=== PATIENT | female | born 1950 | race Caucasian/White ===

== ENCOUNTER → 2023-10-23 09:18 | Outpatient (REF) | payer OTHER, SELFPAY | LOC: RAD 09:18 | PROVIDERS: ATTENDING PHYSICIAN Nurse Practitioner Family | DX: R06.02 Shortness of breath (principal); R05.1 Acute cough | CPT/HCPCS: 71046 ==

== ENCOUNTER → 2023-11-13 09:33 | Outpatient (REF) | payer OTHER, SELFPAY | LOC: RAD 09:33 | PROVIDERS: ATTENDING PHYSICIAN Nurse Practitioner Family | DX: J18.9 Pneumonia, unspecified organism (principal) | CPT/HCPCS: 71046 ==

== ENCOUNTER → 2024-01-12 06:53 | Outpatient (REF) | payer OTHER, SELFPAY ==
[2024-01-12 08:19] LABS: Erythrocyte Sed Rate 26 mm/hour (0-20)
[2024-01-12 09:34] LABS: Vitamin B12 677 pg/ml (239-931)
[2024-01-12 10:33] LABS: Microalbumin, Random Urine 2.1 mg/dl (0.6-1.7); Microalbumin/creatinine Ratio 12.3 mg/g
[2024-01-12 14:01] LABS: Syphilis/T. pallidum Ab Reflex Negative (Negative)
== END ==
LOC: REG 06:53
PROVIDERS: ATTENDING PHYSICIAN Nurse Practitioner Primary Care
DX: Z00.00 Encounter for general adult medical examination without abnormal findings (principal); D47.2 Monoclonal gammopathy; M80.00XA Age-related osteoporosis with current pathological fracture, unspecified site, initial encounter for fracture; R41.89 Other symptoms and signs involving cognitive functions and awareness
CPT/HCPCS: 36415; 82043; 82570; 82607; 82784; 83521; 84155; 84165; 85652; 86334; 86618; 86780

== ENCOUNTER 2024-01-12 08:02 | Emergency (ER) | payer OTHER, SELFPAY ==
[2024-01-12 08:04] VITALS: BP 127/77
--- NOTE | 2024-01-12 08:38 | ED.GENMED ---
History of Present Illness
General
Chief Complaint: Cough
Source: patient
Time Seen by Provider: 01/12/24 08:13
History of Present Illness
History of Present Illness:
73-year-old female presents to the emergency room complaining of a cough. Patient has had a cough for the past 2 or 3 days. She also feels generally weak. She went to her family doctor's office but they would not see her. Patient denies any
significant shortness of breath. She has a history of multiple myeloma.
Phy Exam
Physical Exam
Physical Exam:
General: Awake, Alert, Oriented X3. No acute distress.
Vitals: unremarkable
Head: Atraumatic
Eyes: Pupils equal, EOMI
Throat: Airway intact, no exudates
Neck: Trachea midline
Lungs: Few rhonchi
Heart: Regular rate, no murmurs
Abd: Soft, Nontender, No pulsatile mass
Neuro: Nonfocal
Skin: Warm, dry, no rash
Extremities: pulses equal b/l, no edema
Course
Orders/Labs/Results
Orders:
Orders
01/12/24 08:37
CR Chest - 2 Views Urgent
Comment:
Reason For Exam: cough
01/12/24 08:52
COVID-19 Antigen Urgent
Source: Nasal Swab
01/12/24 11:09
Doxycycline [Vibramycin] 100 mg PO NOW STA
Vital Signs
Initial and Last Documented VS:
Initial Vital Signs
Temp Pulse Resp BP Pulse Ox
98.6 F 82 16 127/77 97
01/12/24 08:04 01/12/24 08:04 01/12/24 08:04 01/12/24 08:04 01/12/24 08:04
Last Documented Vital Signs
Temp Pulse Resp BP Pulse Ox
98.6 F 83 18 133/73 96
01/12/24 08:04 01/12/24 11:21 01/12/24 11:21 01/12/24 11:21 01/12/24 11:21
MDM/Problems Addressed
Differential Diagnosis Includes:
Acute bronchitis, pneumonia, COVID
MDM/Problems Addressed:
COVID-negative. Chest x-ray shows no acute abnormalities. Will cover acute bronchitis with doxycycline. Patient stable for discharge home.
*Radiology
Radiology exam reviewed: preliminary read by ED provider (Personally viewed the chest x-ray see no acute disease)
*Pulse Oximetry
Patient hypoxic: no
*Critical Care Note
Total Time (30-74mins, 75-104mins- exclusive of procedures): Not Applicable
Patient Management
Social determinants of health affecting care: Strong social support
ED Attending Note
-
Portions of this chart may have been created with voice recognition software.� Occasional wrong word or��sound alike� substitutions may have occurred due to the inherent limitations of voice recognition software.
Discharge Plan
Departure
Patient Disposition: Home (Routine Discharge)
Date of Disposition: 01/12/24
Time of Disposition: 11:06
Patient with high blood pressure during this ER visit?: No
Condition: Good
Discharge Problem:
Acute bronchitis
Instructions: Acute Bronchitis, Adult (DC)
Prescriptions:
New
doxycycline monohydrate 100 mg capsule
100 mg PO BID Qty: 14 0RF
albuterol sulfate 90 mcg/actuation HFA aerosol inhaler
2 puff inhalation Q4H PRN (Reason: shortness of breath or wheezing) Qty: 8.5 0RF
No Action
Prolia 60 mg/mL Syringe
60 mg SC [id number]
acetaminophen [Tylenol] 325 mg Tablet
650 mg PO HSPRN PRN (Reason: MILD PAIN)
Referrals:
NONE,* [Family Provider] -
Interventions
Interventions:
*Risk Screen - Suicide Last Done: 01/12/24 08:04
*General Assessment Last Done: 01/12/24 08:04
*Neglect/Abuse Screening Last Done: 01/12/24 08:04
*ED COVID-19 Vaccine History Last Done: 01/12/24 08:04
*Nursing Disposition Last Done: 01/12/24 11:21
ED- Pulmonary Assessment Last Done: 01/12/24 09:00
Discharge Date and Time
Discharge Date/Time: 01/12/24 11:25
Print Language: [place] CITIZ[place]
[2024-01-12 09:00] VITALS: BP 124/62
[2024-01-12 09:48] LABS: COVID-19 Antigen Negative (Negative)
[2024-01-12] MEDS: VIBRAMYCIN 100 MG PO (11:18)
[2024-01-12 11:21] VITALS: BP 133/73
== END 2024-01-12 11:25 | disposition home or self-care (01) ==
LOC: EMR 08:02
PROVIDERS: EMERGENCY PHYSICIAN Emergency Medicine
DX: J20.9 Acute bronchitis, unspecified (principal); Z11.52 Encounter for screening for COVID-19; C90.00 Multiple myeloma not having achieved remission; Z88.2 Allergy status to sulfonamides; Z88.8 Allergy status to other drugs, medicaments and biological substances
CPT/HCPCS: 99283; 36415; 71046; 82043; 82570; 82607; 82784; 83521; 84155; 84165; 85652; 86334; 86618; 86780; 87811

== ENCOUNTER → 2024-01-17 06:43 | Outpatient (REF) | payer OTHER, SELFPAY | LOC: PAVMRI 06:43 | PROVIDERS: ATTENDING PHYSICIAN Nurse Practitioner Primary Care | DX: D47.2 Monoclonal gammopathy (principal); R41.89 Other symptoms and signs involving cognitive functions and awareness; Z81.8 Family history of other mental and behavioral disorders | CPT/HCPCS: 70551 ==

== ENCOUNTER → 2024-07-05 09:08 | Outpatient (REF) | payer OTHER, SELFPAY | LOC: RAD 09:08 | PROVIDERS: ATTENDING PHYSICIAN Family Medicine | DX: E78.00 Pure hypercholesterolemia, unspecified (principal); M80.00XA Age-related osteoporosis with current pathological fracture, unspecified site, initial encounter for fracture | CPT/HCPCS: 77080 ==

== ENCOUNTER → 2024-07-05 11:03 | Outpatient (REF) | payer SELFPAY | LOC: HWRAD 11:03 | PROVIDERS: ATTENDING PHYSICIAN Family Medicine | DX: E78.00 Pure hypercholesterolemia, unspecified (principal) | CPT/HCPCS: 75571 ==

== ENCOUNTER → 2024-07-12 10:06 | Outpatient (REF) | payer OTHER, SELFPAY | LOC: HWRAD 10:06 | PROVIDERS: ATTENDING PHYSICIAN Internal Medicine Critical Care Medicine; FAMILY PHYSICIAN Family Medicine | DX: R91.1 Solitary pulmonary nodule (principal) | CPT/HCPCS: 71250 ==

== ENCOUNTER → 2024-07-23 07:04 | Outpatient (REF) | payer OTHER, SELFPAY ==
[2024-07-23 08:51] LABS: Hematocrit 37.4 % (37.0-47.0); Hemoglobin 12.5 g/dL (12.0-16.0); Mean Corp Hgb Conc. 33.4 g/dL (33.0-37.0); Mean Corpuscular Hgb 31.7 pg (27.0-31.0); Mean Corpuscular Volume 94.9 fL (81.0-99.0); Mean Platelet Volume 10.5 fL (7.4-10.4); Platelet Count 277 10^3/uL (130-400); Red Blood Cell Count 3.94 10^6/uL (4.20-5.40); Red Cell Dist. Width 12.7 % (11.5-14.5); White Blood Cell Count 5.2 10^3/uL (4.8-10.8)
[2024-07-23 08:56] LABS: INR 1.06; PT 14.1 Sec (11.4-14.6)
[2024-07-23 08:57] LABS: APTT 30.2 Sec (23.4-35.0)
[2024-07-23 09:13] LABS: Blood Urea Nitrogen 17 mg/dl (7-17); Calcium 9.1 mg/dl (8.4-10.2); Carbon Dioxide 29 mmol/L (22-30); Chloride 101 mmol/L (98-107); Glucose 101 mg/dl (70-99); Potassium 3.9 mmol/L (3.5-5.1); Sodium 140 mmol/L (135-145); eGFR > 60.00
== END ==
LOC: SDSPAT 07:04
PROVIDERS: ATTENDING PHYSICIAN Internal Medicine Critical Care Medicine
DX: R91.1 Solitary pulmonary nodule (principal)
CPT/HCPCS: 36415; 80048; 85027; 85610; 85730; 93005

== ENCOUNTER 2024-07-26 06:21 | Day surgery (SDC) | payer OTHER, SELFPAY ==
[2024-07-23 14:31] VITALS: BMI 19.4
[2024-07-26] VITALS (16 sets, daily range): BP systolic 117–142; BP diastolic 77–89; BMI 19.9; BMI 20.5
[2024-07-26] MEDS: DUONEB 3 ML INH ×2 (10:58→14:51)
[2024-07-26] MEDS: PULMICORT 0.25 MG INH (14:51)
--- NOTE | 2024-07-26 14:55 | SUR.PHASEI ---
patient in pacu post ion bronch - initially few wheezes that diminished, harsh cough - nonproductive, placed on high humidity blow by with improvement of cough. PCXR done - Dr Miguel views and visits. now Sats have dropped from 95 on room air to
85- 88. occasional cough, rub sound on inspiration. TT Dr Miguel - duoneb and pulmicort ordered. Resp here. When patient rests quietly - sats improved to 97%
--- NOTE | 2024-07-26 15:38 | SUR.PHASEI ---
chest clear now, sats improved - comfortable breathing Dr Miguel updated, cxr results posted
== END 2024-07-26 16:15 | disposition home or self-care (01) ==
LOC: SDS 06:21
PROVIDERS: ATTENDING PHYSICIAN Internal Medicine Critical Care Medicine
DX: C34.90 Malignant neoplasm of unspecified part of unspecified bronchus or lung (principal); R91.1 Solitary pulmonary nodule; R59.1 Generalized enlarged lymph nodes
CPT/HCPCS: 31629; 31628; 31652; 31624; 31627; 31654; 88172; 88173; 88305; 71045; 76000; 81459; 87015; 87070; 87102; 87116; 87205; 88112; 88341; 88342; 94640; C1887

== ENCOUNTER 2024-08-21 07:11 | Inpatient (IN) | payer OTHER, SELFPAY ==
[2024-08-15 08:17] VITALS: BMI 20.7
[2024-08-15 08:59] LABS: Urine Albumin Negative (Neg - Trace); Urine Bilirubin Negative (Negative); Urine Character Clear (Clear); Urine Color Yellow; Urine Glucose Negative (Negative); Urine Ketone Negative (Negative); Urine Leukocyte Negative (Negative); Urine Nitrite Negative (Negative); Urine Occult Blood Negative (Negative); Urine Specific Gravity 1.005 (<1.030); Urine Urobilinogen Negative (Neg - 1+); Urine pH 6.5 (5.0-9.0)
[2024-08-15 09:06] LABS: INR 1.03
[2024-08-15 09:07] LABS: APTT 31.6 Sec (23.4-35.0)
[2024-08-15 09:21] LABS: % Basophils 0.6 % (0-2); % Immature Granulocytes 0.2 % (0-0.5); % Lymphocytes 24.4 % (20.5-51.1); % Monocytes 9.8 % (1.7-9.3); Absolute Eosinophils 0.1 10^3/uL (0-0.7); Absolute Lymphocytes 1.2 10^3/uL (1.2-3.4); Absolute Monocytes 0.5 10^3/uL (0.1-0.6); Absolute Neutrophils 3.1 10^3/uL (1.4-6.5); Hematocrit 37.1 % (37.0-47.0); Hemoglobin 12.5 g/dL (12.0-16.0); Mean Corp Hgb Conc. 33.7 g/dL (33.0-37.0); Mean Corpuscular Hgb 31.4 pg (27.0-31.0); Mean Corpuscular Volume 93.2 fL (81.0-99.0); Mean Platelet Volume 9.5 fL (7.4-10.4); Nucleated Red Blood Cells % 0 %; Platelet Count 280 10^3/uL (130-400); Red Blood Cell Count 3.98 10^6/uL (4.20-5.40); Red Cell Dist. Width 12.8 % (11.5-14.5)
[2024-08-15 09:43] LABS: Glycohemoglobin (HgbA1c) 5.5 % (4.0-5.6)
[2024-08-15 09:46] LABS: ALT (SGPT) 16 U/L (0-35); AST (SGOT) 29 U/L (14-36); Albumin 3.8 g/dl (3.5-5.0); Alkaline Phosphatase 107 U/L (38-126); Blood Urea Nitrogen 17 mg/dl (7-17); Calcium 8.9 mg/dl (8.4-10.2); Carbon Dioxide 26 mmol/L (22-30); Chloride 97 mmol/L (98-107); Direct Bilirubin 0.1 mg/dl (0.0-0.4); Estimated Creatinine Clearance 53 ml/min; Glucose 95 mg/dl (70-99); Sodium 131 mmol/L (135-145); Total Bilirubin 0.8 mg/dl (0.2-1.3); Total Protein 8.9 g/dl (6.3-8.2); eGFR > 60.00
--- NOTE | 2024-08-15 10:13 | CM ---
CM following for DC planning needs.
Met w/ patient during PATs for planned Lung Surgery, 08/21.
Pt. resides alone in a private 2 story [facility]. Functionally, patient is indep. at baseline w/ ADLs, mobility without the use of any assisted devices.
Pt. is retired, + drives. She has casual friends, that can provide assistance as needed.
Pt. has RX plan and uses [facility] on [address] in [place] for prescription needs.
Reviewed pre and post op routines.
Soap, shower instructions, Lung Surgery booklet provided.
Reviewed post op restrictions to include lifting, driving.
Reviewed post op MD appointment and visit from CT Transitional Care RN.
Plan: CT Surgery 08/21
Anticipated DC plan is for home with CT Transitional Care RN.
Of note, patient reports sig. memory loss and short term memory issues.
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
Pt. also requesting RX to be sent to her pharmacy prior to her admission so that she can pick them up and be prepared upon DC. I have relayed this as well to CT Sx team.
[2024-08-21] VITALS (16 sets, daily range): BP systolic 116–155; BP diastolic 69–97; BMI 19.8
--- NOTE | 2024-08-21 06:53 | W.CVOR.SURPR ---
CVOR Surgeon Immed Pre Op
-
I have examined this patient prior to performance of the scheduled procedure.
The patient's condition is unchanged from the time of the dictated/written History and
Physical and the patient is able to undergo the scheduled procedure.
RATS RUL poss wedge if nodule adherent + Ln dissection
--- NOTE | 2024-08-21 08:09 | PTCARENOTE ---
Pt arrived to CVICU at 0700. Admission questions completed. Height/weight and vitals obtained. Pt confirmed showering with surgical wash x2 prior to admission. Pt clipped and prepped. ABO and MRSA swabs collected per orders. Confirmed NPO since
midnight. Oriented pt to unit and plan of care. Pt in bed with call louis within reach awaiting CVOR.
--- NOTE | 2024-08-21 08:38 | CM ---
Reviewed chart. Ms. Bloom is in the operating room today. Prior to admission she resides alone in a two story [place]. Prior to admission she was independent with ambulation and adls. She does not have any DME in the home. Medical work-up in
progress. The discharge plan is to return home with supportive friends and a home visit by the Transitional Care nurse when medically stable.
--- NOTE | 2024-08-21 12:13 | W.CVOR.SURPR ---
CVOR Surgeon Immed Pre Op
-
I have examined this patient prior to performance of the scheduled procedure.
The patient's condition is unchanged from the time of the dictated/written History and
Physical and the patient is able to undergo the scheduled procedure.
RUL + LN
[2024-08-21 12:14] LABS: Urine Albumin 1+ (Neg - Trace); Urine Bilirubin Negative (Negative); Urine Character Clear (Clear); Urine Color Yellow; Urine Glucose Negative (Negative); Urine Ketone Negative (Negative); Urine Leukocyte Negative (Negative); Urine Nitrite Negative (Negative); Urine Occult Blood Negative (Negative); Urine Specific Gravity 1.015 (<1.030); Urine Urobilinogen Negative (Neg - 1+)
[2024-08-21] MEDS: ANCEF 10 IV ×2 (12:25)
[2024-08-21 14:27] LABS: Urine Amorphous Seen; Urine Mucus Few
[2024-08-21 14:28] LABS: Urine Red Blood Cell 0-2 /HPF (0-2); Urine White Cell 0-2 /HPF (0-5)
--- NOTE | 2024-08-21 15:07 | W.PN.CT.SURG ---
CT Surgery Operative Note
-
THORACIC SURGERY OPERATIVE REPORT
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
Postoperative Diagnosis: Same
Procedure(s) Performed:
1. Robotic assisted thoracic surgery (RATS) right upper lobectomy
2. Wedge resection of the right middle lobe [adherent to the tumor]
3. Radical lymphadenectomy
4. Intercostal nerve block performed by anesthesia
5. Pexy of right middle lobe to right lower lobe to mitigate the risk of torsion
Date of Surgery: 08/21/2024
Comorbidities:
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
2. Multiple myeloma
3. MRSA
4. Osteoporosis
5. History of polio as a child
6. Ruptured T12 vertebrae
7. Underweight, BMI of 19
Attending Surgeon: Christopher Sanon MD, MS
Assistants: Virgen Zambrano PA-C (present and necessary to assistant dean of students, exchanging robotic instruments, retraction, suction, exposure, suture management, and wound closure under my direction)
Anesthesiology: Bandar Higginbotham MD and FRACISCO Weeks
Scrub and Circulating RNs: Gonzalo Barraza RN, Bessie Leahy RN
Anesthesia: Dual Lumen GETA
EBL: 100 cc
Products: None
Indication(s) for Procedures: This is a 73-year-old female who was found to have a right upper lobe nodule that was adjacent to the fissure between the right upper and right middle lobe. Biopsy revealed adenosquamous carcinoma. PET/CT and
additional workup revealed no significant mediastinal spread. There was some questionable involvement of an 11R lymph node however this by pathological consensus was just atypical cells not definitive for cancer. Given her nodule, pathology, and
questionable involvement of an 11R lymph node, she was offered right upper lobectomy possible wedge to the right middle lobe lesion.
Findings: There were no obvious intrathoracic metachronous lesions. There was some generalized parenchymal adhesions between the right upper and right middle lobes. There was an area that was a little more adherent between the nodule and the right
middle lobe. This was wedged out later during the case. Her fissures were relatively well-developed. I was able to identify the truncus to the right upper lobe as well as the ascending branch off of the basilar pulmonary artery. These were
individually divided as well as the vein leading to the right upper lobe. The bronchus was clamped and the test inflation was performed revealing unobstructed flow to the right middle and right lower lobes. The right upper lobe was then divided.
The area that was adherent to the right upper lobe nodule was wedged out to a good clear margin. This was sent off for pathological assessment. I performed a pexy of the right middle lobe to right lower lobe in order to mitigate the risk of
torsion. At the conclusion of the case, there was a very minimal amount of air leakage.
Specimen(s):
Station 9, x 1 nodes
Station 8, x 2 nodes
Station 10, x 5 nodes
Station 7, x 3 nodes
Right upper lobe
Right middle lobe wedge
Description of Procedure: The patient was taken to the operating room. Induction via general anesthesia with endotracheal intubation was performed and peripheral venous access and arterial monitoring were inserted. Their identity and procedure to be
performed were verified and they were positioned with the right side up on the operating table. The patient was then prepped and draped in a sterile fashion. A preoperative time-out was performed with all members of the team present. A Veress
needle was used to insufflate the chest after isolating the lung. An 8 mm port was placed in the midaxillary line at approximately the eighth intercostal space and confirmed to be intrathoracic without significant pulmonary injury. The chest was
surveyed for any evidence of metastatic disease. Patient tolerate insufflation without complication. 2 additional trocars (8mm and 12mm) were placed on either side under camera guidance and a third 8 mm trocar was placed along the back. A 12 mm
economic research assistant port was placed in the 11th intercostal space above the insertion of the diaphragm. An intercostal nerve block was performed at intercostal spaces 5 through 8.
The thoracic cavity was inspected for evidence of metastatic disease. None was observed. We started with mobilization of the inferior pulmonary ligament. We worked our way clockwise dissecting out the hilum and harvest any lymph nodes identified.
The pulmonary arteries and veins leading to the right upper lobe were identified and skeletonized after developing the fissure. This was done by dissecting along the confluence of the basilar pulmonary artery and then developing the fissure
posteriorly with multiple green load fires. I then worked anteriorly between the right middle lobe and right upper lobe veins and then divided this lung parenchyma with green load stapler fires. In order to visualize the truncus safely, I then
took the pulmonary veins leading to the upper lobe first with a white load stapler this then opened the hilum for me to dissect out the truncus as well as a single ascending branch of the basilar artery. These were taken with white load staplers.
This left just the bronchus leading to the right upper lobe behind. I clamped the bronchus and performed a test inflation which demonstrated unobstructed flow into the remaining right middle and right lower lobe. The specimen was displaced toward
the apex while a chest tube was inserted and placed laterally towards the apex. CoSeal was used to reinforce the staple lines and hilum. The area that was adherent to the nodule in the right upper lobe located on the right middle lobe was taken
with 2 green load fires and pulled out through the air seal port. I then performed a pexy of the right middle lobe to the right lower lobe in order to mitigate the risk of torsion. This was performed with a green load staple fire. The right upper
lobe was then placed into a specimen bag and extracted from the chest cavity. After confirming hemostasis, the lung was fully inflated and all ports were removed. Incisions were closed in 3 layers including the fascia, dermal, and epidermis.
Additional local anesthesia was injected into all incision sites. The skin wound was cleansed and sealed with Dermabond glue.
All instrument, sponge, and needle counts were confirmed to be correct x 2 at the end of the operation. The patient was transferred to the cardiac intensive care unit extubated in critical but stable condition.
I, Dr. Christopher Sanon, was present, scrubbed for, and performed all critical elements of this procedure.
Christopher Sanon MD, MS
Cardiothoracic Surgeon
[facility]
This operative dictation was created using the [place] dictation system. Please excuse any grammatical, typographical, or 'sound alike' errors
[2024-08-21] MEDS: TYLENOL PO (16:02)
[2024-08-21] MEDS: DILAUDID 0.5 MG IV (16:05)
[2024-08-21] MEDS: DILAUDID 0.25 MG IV (16:26)
--- NOTE | 2024-08-21 17:19 | SUR.PHASEI ---
pacu post op right upper lobectomy, middle wedge resection, chest tube initially to suction and then suction discontinued by ISRAEL New. initially received smacking her right chest with hand, moaning. little verbal exchange. medicated for pain by
EMBROIDERY MACHINE OPERATOR and then dilaudid 0.5mg and 0.25mg. slept - more alert on discharge. vss, HNV post op. crepitus has decreased during pacu stay. more verbal now; states minimal discomfort, kept HOB at 40 degrees.
[2024-08-21] MEDS: LOPRESSOR PO (17:43)
[2024-08-21] MEDS: MIRALAX PO (17:43)
[2024-08-21] MEDS: SENOKOT PO (17:44)
--- NOTE | 2024-08-21 17:54 | W.PN.UPDATE ---
Update Note
Progress Note Update
73-year-old female electively admitted on 08/21/2024 for right upper lobe lobectomy due to adeno squamous carcinoma of the lung.
�
NEURO: Drowsy, moves all extremities to command, pupils +2mm B/L
RESP: R pleural (60cc on arrival) chest tube to water seal. No air leak. Sanguineous drainage
CV: RRR +S1, S2, no S3, no�rub, no murmur. Dermabond to robotic assist thoracotomy incisions.
ABD: round, soft, no BS
EXT: no edema, +2/4 DP pulses B/L, no femoral bruit, left radial A-line intact
: [place] with clear yellow urine
�
A/P: POD #0 s/p robotic assisted thoracic surgery (RATS) right upper lobectomy, wedge resection of the right middle lobe, radical lymphadenectomy, pexy of right middle lobe to right lower lobe to mitigate the risk of torsion
- received from PACU
- surgical pathology result pending
- DVT prophylaxis with Heparin SC
- AF prophylaxis with Metoprolol
�
# Osetoporosis
- on Prolia q 6 months
�
--- NOTE | 2024-08-21 17:58 | PTCARENOTE ---
Pt arrived from PACU into 2267 around 1700. Pt is drowsy, able to state name and and move all extremities. Pt remains SR with BBB, HR 63. BP 108/52 MAP 75. Pulse oximetry 99% on 2L nasal cannula. Right posterior chest tube in place to water
seal, crepitus noted around chest tube site on right lateral/posterior, CT ANTENNA RIGGER Kay made aware. No sign of air leak in chest tube, drainage red in color. Pt is due to void. Right lateral incision approximated with surgical adhesive. Left radial
Forman intact. Pt currently resting comfortably with call louis within reach.
[2024-08-21] MEDS: NEURONTIN PO (18:06)
[2024-08-21] MEDS: HEPARIN 5000 UNITS SC (18:11)
[2024-08-21] MEDS: ZOFRAN 4 MG IV (19:27)
[2024-08-21] MEDS: TORADOL 15 MG IV (21:22)
[2024-08-21] MEDS: ANCEF 5 IV (21:30)
--- NOTE | 2024-08-21 21:30 | PTCARENOTE ---
Report received from MAYLIN Hess. Walking rounds done. Pt c/o nausea. Zofran 4 mg IV at 1930. Pt awake, alert, oriented x 4. Speech clear. Moves all extremities equally. On 2L/NC. Sats 98-99%. R posterior CT to water seal. No air leak. Crepitus
palpated to R lateral chest (near incisions and posteriorly near CT insertion site). No c/o dyspnea. Audible heart tones. Pt in SR. L radial A-line present. Normotensive, hypertensive at times with nausea, pain. C/O R sided lateral/post CP at 2109.
Toradol 15 mg IV given with + relief. Belly soft, nontender. Hypoactive bs x 4. Nausea temporarily relieved after Zofran. Pt voided clear, yellow urine on bedpan, 500 mls. Ongoing plan of care.
[2024-08-21] MEDS: REFRESH EYE DROPS (PF) 1 DROPS BOTH EYES (21:31)
[2024-08-21] MEDS: LOPRESSOR 12.5 MG PO (21:32)
[2024-08-21] MEDS: SENOKOT 8.6 MG PO (21:33)
[2024-08-21] MEDS: REGLAN 10 MG IV (22:02)
--- NOTE | 2024-08-21 22:05 | PTCARENOTE ---
Continued nausea. ISRAEL Irwin called and notified. Reglan 10 mg IV given.
[2024-08-22] VITALS (20 sets, daily range): BP systolic 95–133; BP diastolic 55–83; BMI 19.9
[2024-08-22] MEDS: HEPARIN 5000 UNITS SC ×4 (00:30→23:45)
[2024-08-22] MEDS: DILAUDID 0.25 MG IV (00:31)
[2024-08-22] MEDS: TYLENOL 1000 MG PO ×4 (00:48→23:31)
[2024-08-22] MEDS: NEURONTIN 100 MG PO ×4 (00:48→23:30)
--- NOTE | 2024-08-22 01:35 | PTCARENOTE ---
Pt c/o 4-11/09 R-sided CP. Dilaudid 0.25 mg IV given. Remains in SR. Denies dyspnea. R pleural CT remains to water seal. No air leak. Crepitus unchanged in size. Sats 98-99% on 2L/NC. Output recorded. See I/O's.
[2024-08-22] MEDS: ANCEF 5 IV ×2 (04:25→12:22)
[2024-08-22] MEDS: TORADOL 15 MG IV ×3 (04:25→23:46)
[2024-08-22] MEDS: ZOFRAN 4 MG IV (04:52)
--- NOTE | 2024-08-22 04:55 | PTCARENOTE ---
Toradol 15 mg IV for pain and Zofran 4 mg IV given for nausea. See MAR.
--- NOTE | 2024-08-22 05:15 | W.PN.CT ---
Today's Communication / Plan
-
-No issues overnight, hemodynamically stable
-CT on water seal without air leak, drainage 175/295, eval later for removal
-subQ heparin for DVT prophylaxis in setting of cancer
-encourage ISB
-discharge planning, patient would like to stay today.
Assessment / Plan
-
s/p robotic assisted thoracic surgery (RATS) right upper lobectomy, wedge resection of the right middle lobe, radical lymphadenectomy, pexy of right middle lobe to right lower lobe to mitigate the risk of torsion POD#1
-adenosquamous carcinoma
-multiple myeloma
-osteoporosis
Subjective
Procedure
s/p robotic assisted thoracic surgery (RATS) right upper lobectomy, wedge resection of the right middle lobe, radical lymphadenectomy, pexy of right middle lobe to right lower lobe to mitigate the risk of torsion on 08/21/[address] Sanon
-
Date of Service: August 22, 2024
Objective Data
-
Lab Results
08/22/24 05:05
08/22/24 05:05
PT 14.0 Sec (11.4-14.6) 08/15/24 08:26
INR 1.03 08/15/24 08:26
APTT 31.6 Sec (23.4-35.0) 08/15/24 08:26
Vital Signs
Vital Signs
Temp Pulse Resp BP Pulse Ox
98 F 70 22 133/78 97
08/22/24 00:00 08/22/24 04:43 08/22/24 04:43 08/22/24 04:43 08/22/24 04:30
CT Intake/Output/Weight
08/21/24 08/21/24 08/22/24
06:59 18:59 06:59
Intake Total 150 / 300 150 / 300
Output Total 120 / 995 875 / 995
Balance -
SaO2: 97
Physical Exam
-
General: AOx3
Cardiovascular: Regular rate & rhythm
Respiratory: Clear
Incision: Dressing Intact
Extremities: No Edema
[2024-08-22 05:36] LABS: Hematocrit 32.2 % (37.0-47.0); Mean Corp Hgb Conc. 34.2 g/dL (33.0-37.0); Mean Corpuscular Hgb 31.5 pg (27.0-31.0); Mean Corpuscular Volume 92.3 fL (81.0-99.0); Mean Platelet Volume 10.3 fL (7.4-10.4); Platelet Count 241 10^3/uL (130-400); Red Blood Cell Count 3.49 10^6/uL (4.20-5.40); Red Cell Dist. Width 12.6 % (11.5-14.5); White Blood Cell Count 9.5 10^3/uL (4.8-10.8)
[2024-08-22 05:47] LABS: Blood Urea Nitrogen 27 mg/dl (7-17); Calcium 8.6 mg/dl (8.4-10.2); Carbon Dioxide 24 mmol/L (22-30); Chloride 99 mmol/L (98-107); Estimated Creatinine Clearance 41 ml/min; Glucose 157 mg/dl (70-99); Potassium 4.6 mmol/L (3.5-5.1); Sodium 132 mmol/L (135-145); eGFR > 60.00
--- NOTE | 2024-08-22 06:40 | PTCARENOTE ---
A line d/c'ed. Pressure held for 20 minutes. Pressure dressing applied. CHG bath given. To give report to Deshawn CARLISLE and do walking rounds.
[2024-08-22] MEDS: LOPRESSOR 12.5 MG PO (08:30)
[2024-08-22] MEDS: MIRALAX 17 GRAMS PO (08:30)
[2024-08-22] MEDS: SENOKOT 8.6 MG PO ×2 (08:30→23:30)
[2024-08-22] MEDS: LIDOCAINE 4% PATCH 1 PATCH TOPICAL (08:30)
[2024-08-22] MEDS: LASIX 40 MG IV (08:30)
[2024-08-22] MEDS: REFRESH EYE DROPS (PF) 1 DROPS BOTH EYES ×2 (08:31→23:30)
[2024-08-22] MEDS: FLEXERIL 5 MG PO (08:44)
--- NOTE | 2024-08-22 08:45 | PTCARENOTE ---
Assumed care of patient at 0700. Pt is awake, alert, and oriented. Pt with moderate complaints of pain, PRN Flexeril administered. Pt remains SR with BBB, HR 69. BP 123/72 MAP 88. Pulse oximetry 97% on room air. Right posterior chest tube in place,
initially to water seal, drainage serosanguineous no sign of air leak. Crepitus noted around chest tube site. Chest tube now clamped per order. Pt tolerated breakfast, no nausea. Voiding without issue. Right lateral incisions approximated with
surgical adhesive and PRESLEY. Pt currently resting comfortably with call louis within reach.
--- NOTE | 2024-08-22 12:51 | PTCARENOTE ---
X-ray done at bedside. CT FAVOR MAKER, Bessie, instructed to place right posterior chest tube to suction. Pt remains SR with BBB HR 67. BP 120/70 MAP 85. Pulse oximetry 96% on room air. PRN Toradol administered for pain.
--- NOTE | 2024-08-22 14:30 | PTCARENOTE ---
Spoke with CT ACOUSTICAL LOGGING ENGINEERBessie regarding chest tube management. Pt is now back to water seal. Crepitus unchanged around chest tube site. Chest tube dressing changed.
--- NOTE | 2024-08-22 14:37 | PN.CDI ---
CDI
- -
CDI:
Physician Documentation Request
Admit Date: 08/21/24 07:[address] surgery,
Clinical Indicators:
Patient admitted with adenosquamous carcinoma of the right upper lobe; s/p RATS right upper lobectomy 08/21
Pain scale ratings 3 -5
Sodium level
08/22/24
05:05
Sodium 132 L
Based on the above, could you clarify in the progress notes, the appropriate diagnosis, if significant, that supports the above abnormalities and additional evaluation, monitoring and/or treatment rendered:
Hyponatremia
Abnormal lab value, clinically insignificant
Other
Use of terms such as suspected, likely, concern for, or probable (associated with a specific diagnosis that is being evaluated, monitored, or treated as if it exists) are acceptable and can be coded in the inpatient setting, when documented at the
time of discharge.
Thank you,
Asia Vargas RN BSN
CDI Specialist
available via tiger text
Please use your independent medical judgment in providing your response.
--- NOTE | 2024-08-22 14:43 | PN.CDI ---
Addendum entered and electronically signed by Nehemias Castro PA-C 08/22/24 14:53:
Pt with post operative atelectasis. Encouraged use of I.S.
Original Note:
CDI
- -
CDI:
Physician Documentation Request
Admit Date: 08/21/24 07:[address] Surgery,
Clinical Indicators:
Patient admitted with adenosquamous carcinoma of the right upper lobe; s/p RATS right upper lobectomy 08/21
08/21 IS, Acapela ordered.
08/21, 08/22 Nursing Interventions: Incentive Spirometry Volume 500-750 ml
08/22 CXR report, ' Slightly increased minor linear stranding in the medial left lung base, most likely atelectasis.'
Please indicate in your progress notes if you are in agreement that the above diagnosis is valid for this patient:
Atelectasis is a valid diagnosis (Please include it in your progress notes)
Atelectasis is not a valid diagnosis for this patient
Other
Use of terms such as suspected, likely, concern for, or probable are acceptable for a diagnosis that is being evaluated, monitored or treated as if it exists and can be coded in the inpatient setting, when documented at the time of discharge.
Thank you,
Asia Vargas RN BSN
CDI Specialist
available via tiger text
Please use your independent medical judgment in providing your response.
--- NOTE | 2024-08-22 14:57 | CM ---
Reviewed chart. Tried to see Mrs. Bloom to review discharge plans. She was sleeping , will try again.
--- NOTE | 2024-08-22 16:30 | PTCARENOTE ---
Pt with no changes in assessment. Remains SR with BBB, HR 67. BP 100/55 MAP 68. Right posterior chest tube to water seal, drainage serosanguineous. No sign of air leak. Crepitus remains present around chest tube site.
[2024-08-22] MEDS: LOPRESSOR PO (20:00)
--- NOTE | 2024-08-22 21:00 | PTCARENOTE ---
Report received from MAYLIN Hess. VS done. Assessment completed. Pt oriented x 4. Speech clear. Moves all extremities equally. C/O feeling tired. On room air. Sat 92-94%. After CDB, sat up to 96%. BBS present. Decreased to B bases. R posterior CT to
water seal. Draining red, sanguinous drainage. Crepitus palpated toan-incisions and CT site to R post-lateral chest. No c/o dyspnea. Audible heart tones. Pt in SR. BP 90's/60's. Metoprolol held. PA made aware. For pulse assessment, see flowsheet.
Belly soft, nontender. Hypoactive bs x 4. Ongoing plan of care.
[2024-08-23] VITALS (7 sets, daily range): BP systolic 99–135; BP diastolic 56–75; BMI 19.9
--- NOTE | 2024-08-23 | PTCARENOTE ---
Toradol 15 mg IV given for 4/10 R post-lat CP. Pt helped to BR to void 200 mls clear, yellow urine. Pt helped back to bed. Blessing WOOD into see pt. Pt noted to have small amount of intermittent bubbling to CT with cough. No c/o dyspnea. No change in
crepitus. Pt with [address] output (over 4 hours). PA aware. CHG bath done. Pt going to sleep for evening.
[2024-08-23] MEDS: MUCINEX 600 MG PO ×3 (01:07→20:20)
--- NOTE | 2024-08-23 04:00 | PTCARENOTE ---
VS done. Labs drawn and sent.
[2024-08-23 05:42] LABS: Blood Urea Nitrogen 45 mg/dl (7-17); Calcium 8.6 mg/dl (8.4-10.2); Carbon Dioxide 30 mmol/L (22-30); Chloride 100 mmol/L (98-107); Estimated Creatinine Clearance 34 ml/min; Glucose 113 mg/dl (70-99); Magnesium 2.3 mg/dl (1.6-2.3); Potassium 4.3 mmol/L (3.5-5.1); Sodium 133 mmol/L (135-145); eGFR 53.72
--- NOTE | 2024-08-23 06:08 | W.PN.CT ---
Today's Communication / Plan
-
-pod #2
-CT on water seal overnight, + air leak noted only with cough, put out 155/385 dark bloody output
-follow CXR
-started on Mucinex for productive cough
Assessment / Plan
-
s/p robotic assisted thoracic surgery (RATS) right upper lobectomy, wedge resection of the right middle lobe, radical lymphadenectomy, pexy of right middle lobe to right lower lobe to mitigate the risk of torsion by Dr. Sanon on 08/21/24, POD#2
-adenosquamous carcinoma
-multiple myeloma
-osteoporosis
-suspected CLAUDIA with brief O2 desaturation at night
Discussed patient care with: Nursing and Care Team
Subjective
Procedure
s/p robotic assisted thoracic surgery (RATS) right upper lobectomy, wedge resection of the right middle lobe, radical lymphadenectomy, pexy of right middle lobe to right lower lobe to mitigate the risk of torsion on 08/21/[address] Sanon
-
Date of Service: August 23, 2024
Objective Data
-
Lab Results
08/22/24 05:05
08/23/24 04:46
PT 14.0 Sec (11.4-14.6) 08/15/24 08:26
INR 1.03 08/15/24 08:26
APTT 31.6 Sec (23.4-35.0) 08/15/24 08:26
Vital Signs
Vital Signs
Temp Pulse Resp BP Pulse Ox
98.5 F 71 16 108/66 94
08/23/24 04:11 08/23/24 03:00 08/23/24 04:11 08/23/24 04:11 08/23/24 04:11
CT Intake/Output/Weight
08/22/24 08/22/24 08/23/24
06:59 18:59 06:59
Intake Total 150 / 300
Output Total 875 / 1035 730 / 1085 355 / 1085
Balance -725 / -735 -730 / -1085 -355 / -1085
SaO2: 94
Physical Exam
-
General: Awake and AOx3
Cardiovascular: Regular rate & rhythm, No Murmurs and No Rub
Respiratory: Other (crackles on R, no wheeze b/l)
Incision: Clean, Dry and Intact (no palpable crepitus)
Extremities: No Edema
Abdomen: soft, nontender, nondistended
Data Reviewed
-
Lab Results: Results Reviewed
Medications: Active Meds Reviewed
Chest X-Ray: Report Reviewed and Image Reviewed
ECG: Report Reviewed and Image Reviewed
[2024-08-23] MEDS: TYLENOL 1000 MG PO ×3 (06:42→21:35)
--- NOTE | 2024-08-23 07:00 | PTCARENOTE ---
report received from previous RN. pt assisted OOB to walk to bathroom. AAOX3. ambulated independently in room. SR on telemetry heart rate in 70s. pulses palpable. no edema. pt on room air, sat 95%. lung sounds diminished in bilateral bases. IS 750.
active bowel sounds. voiding in bathroom without difficulty. surgical sites CDI PRESLEY with surgical adhesive. Right posterior chest tube to water seal, no air leak noted. small amount of crepitus noted around site and by chest incisions. pt updated on
plan of care. see worklist for full nursing assessment and interventions.
--- NOTE | 2024-08-23 07:35 | PTCARENOTE ---
Report to MAYLIN Mcghee. Walking rounds done. Pt helped to BR to void, weighed, and in chair.
[2024-08-23] MEDS: LIDOCAINE 4% PATCH TOPICAL ×2 (08:03→08:09)
[2024-08-23] MEDS: NEURONTIN 100 MG PO ×3 (08:03→21:35)
[2024-08-23] MEDS: MIRALAX 17 GRAMS PO (08:03)
[2024-08-23] MEDS: SENOKOT 8.6 MG PO ×2 (08:03→20:20)
[2024-08-23] MEDS: LOPRESSOR 12.5 MG PO ×2 (08:04→20:23)
[2024-08-23] MEDS: REFRESH EYE DROPS (PF) 1 DROPS BOTH EYES ×2 (08:04→20:20)
[2024-08-23] MEDS: HEPARIN 5000 UNITS SC ×2 (08:04→15:48)
--- NOTE | 2024-08-23 10:53 | W.PN.UPDATE ---
Update Note
Progress Note Update
CDI query:
Hyponatremia
Atelectasis
--- NOTE | 2024-08-23 12:06 | PTCARENOTE ---
pt resting comfortably. no changes in assessment noted. chest tube clamped at this time, awaiting results of chest xray
--- NOTE | 2024-08-23 14:13 | CM ---
Reviewed chart. Met with Mr. Bloom to review discharge plans. She states prior to admission she resides in a two story [facility]. She states she has a first floor set-up. She states prior to admission she was independent with ambulation and
adls. She states she does not have any DME in the home. She states she has a prescription plan and uses [facility]. She states a friend will take her home. We reviewed a home visit by the Transitional Care Nurse. She is agreeable to a home
visit. Medical work-up in progress. The discharge plan is to return home with a home visit by the Transitional Care Nurse when medically stable.
[2024-08-23] MEDS: TORADOL 15 MG IV (15:55)
--- NOTE | 2024-08-23 16:00 | PTCARENOTE ---
pt resting comfortably. Toradol given for pain. chest tube to water seal. no changes in assessment noted.
--- NOTE | 2024-08-23 20:00 | PTCARENOTE ---
Assumed care of the patient at 1900. Patient ambulating in the halls without issues. AOx3, forgetful, anxious at times. SR on the monitor, no edema, + pulses throughout, heart tones audible, RRR. CTx1 present in R posterior pleural space to H20
seal, no air leak, tidaling, or crepitus noted, lungs clear. No c/o nausea, attempted BM but unable, given scheduled senna. Voiding in the bathroom without issues. All surgical sites intact. PIVx2 INT. Plan of care discussed with the patient, in
agreement, assessment of needs ongoing.
[2024-08-24] VITALS (7 sets, daily range): BP systolic 96–123; BP diastolic 46–75; BMI 20.5
--- NOTE | 2024-08-24 | PTCARENOTE ---
Patient sleeping between care. Assessment unchanged.
[2024-08-24] MEDS: HEPARIN 5000 UNITS SC (00:11)
[2024-08-24] MEDS: TORADOL 15 MG IV (02:05)
--- NOTE | 2024-08-24 04:00 | PTCARENOTE ---
Voiding without difficulty, ambulating in room ad ar. Assessment unchanged.
[2024-08-24 04:45] LABS: Hematocrit 27.6 % (37.0-47.0); Hemoglobin 9.3 g/dL (12.0-16.0); Mean Corp Hgb Conc. 33.7 g/dL (33.0-37.0); Mean Corpuscular Hgb 31.3 pg (27.0-31.0); Mean Corpuscular Volume 92.9 fL (81.0-99.0); Mean Platelet Volume 10.2 fL (7.4-10.4); Platelet Count 201 10^3/uL (130-400); Red Blood Cell Count 2.97 10^6/uL (4.20-5.40); Red Cell Dist. Width 12.7 % (11.5-14.5); White Blood Cell Count 8.5 10^3/uL (4.8-10.8)
[2024-08-24 05:12] LABS: Blood Urea Nitrogen 43 mg/dl (7-17); Calcium 8.5 mg/dl (8.4-10.2); Carbon Dioxide 29 mmol/L (22-30); Chloride 96 mmol/L (98-107); Estimated Creatinine Clearance 46 ml/min; Glucose 113 mg/dl (70-99); Potassium 4.6 mmol/L (3.5-5.1); Sodium 127 mmol/L (135-145); eGFR > 60.00
[2024-08-24] MEDS: TYLENOL 1000 MG PO ×3 (05:32→22:18)
--- NOTE | 2024-08-24 06:53 | W.PN.CT ---
Addendum entered and electronically signed by Kris Coffman MD 08/24/24 09:36:
I saw and examined the patient.
The PA's note was reviewed and I agree with the note.
Comment:
POD#3 s/p RULobectomy/RML wedge
CT w/ 275mL dark 'old' bloody drainage overnight CXR w/ no effusion, continued medial fluid in fissure, forced expiratory air leak
Maintain CT to H2O seal today
Consult nephrology for hyponatremia
Original Note:
Today's Communication / Plan
-
-pod #3
-c/o 'double vision' lasting seconds earlier, none overnight. Neuro is intact, no focal deficits. Vision, speech and sensory intact. No headache
-R CT on water seal, no air leak noted with breathing or cough, put out 275/495 in 12/24 hrs
-CXR with tiny stable R ptx
-Na 127 today (133 on 08/23)- fluid restriction- follow
Assessment / Plan
-
s/p robotic assisted thoracic surgery (RATS) right upper lobectomy, wedge resection of the right middle lobe, radical lymphadenectomy, pexy of right middle lobe to right lower lobe to mitigate the risk of torsion by Dr. Sanon on 08/21/24, POD#3
-adenosquamous carcinoma
-multiple myeloma
-osteoporosis
-suspected CLAUDIA with brief O2 desaturation at night
-acute postop hyponatremia
Discussed patient care with: Nursing and Care Team
Subjective
Procedure
s/p robotic assisted thoracic surgery (RATS) right upper lobectomy, wedge resection of the right middle lobe, radical lymphadenectomy, pexy of right middle lobe to right lower lobe to mitigate the risk of torsion on 08/21/[address] Sanon
-
Date of Service: August 24, 2024
Objective Data
-
Lab Results
08/24/24 04:25
08/24/24 04:25
PT 14.0 Sec (11.4-14.6) 08/15/24 08:26
INR 1.03 08/15/24 08:26
APTT 31.6 Sec (23.4-35.0) 08/15/24 08:26
Vital Signs
Vital Signs
Temp Pulse Resp BP Pulse Ox
97.9 F 67 18 107/68 95
08/24/24 04:00 08/24/24 04:00 08/24/24 04:00 08/24/24 04:00 08/24/24 04:00
CT Intake/Output/Weight
08/23/24 08/23/24 08/24/24
06:59 18:59 06:59
Intake Total 480 / 840 360 / 840
Output Total 355 / 1085 445 / 1220 775 / 1220
Balance -355 / -1085 35 / -380 -415 / -380
SaO2: 95
Physical Exam
-
General: Awake and AOx3
Cardiovascular: Regular rate & rhythm, No Murmurs and No Rub
Respiratory: Other (crackles on R, no wheeze b/l)
Incision: Clean, Dry and Intact (no palpable crepitus)
Abdomen: soft, nontender, nondistended
Extremities: No Edema
Data Reviewed
-
Lab Results: Results Reviewed
Medications: Active Meds Reviewed
Chest X-Ray: Report Reviewed and Image Reviewed
ECG: Report Reviewed and Image Reviewed
[2024-08-24] MEDS: NEURONTIN 100 MG PO ×3 (09:03→22:19)
[2024-08-24] MEDS: SENOKOT 8.6 MG PO ×2 (09:03→19:52)
[2024-08-24] MEDS: MIRALAX 17 GRAMS PO (09:03)
[2024-08-24] MEDS: LOPRESSOR 12.5 MG PO (09:03)
[2024-08-24] MEDS: FLEXERIL 5 MG PO (09:03)
[2024-08-24] MEDS: MUCINEX 600 MG PO ×2 (09:03→19:52)
[2024-08-24] MEDS: REFRESH EYE DROPS (PF) 1 DROPS BOTH EYES ×2 (09:03→19:52)
[2024-08-24] MEDS: HEPARIN SC (09:04)
[2024-08-24] MEDS: LIDOCAINE 4% PATCH TOPICAL (09:04)
--- NOTE | 2024-08-24 09:48 | PTCARENOTE ---
assumed care of pt from previous shift RN, sinus rhythm on tele, VSS. + peripheral pulses, no edema. Surgical sites stable. Right lateral ct w red drainage. PIV x2 flush easily. pt medicated for pain. plan of care reviewed w the pt and questions
encouraged.
--- NOTE | 2024-08-24 15:20 | W.CON.NEPH ---
Consultation
-
Date/Time Consultation Requested: 08/24/24 11am
Date/Time Consultation Performed: 08/24/24 3pm
Requesting Provider: Dr. Coffman
Performing Provider: Dr. Turner
Reason for Consultation: Hyponatremia
Medical History
-
Chief Complaint: Lung surgery
History of Present Illness:
This is a 73-year-old female who has history of multiple myeloma though treated in the past. She also has osteoporosis controlled with Prolia. Her myeloma is now in remission. She was recently been found to have a 1 cm right upper lobe mass which
was found to be adenosquamous carcinoma. It was determined that surgical resection would be planned and she was admitted for that procedure. Postoperatively she had some development of anemia but also had graphing sodium level is now 127. Last
month was 140 but preoperatively was 131. We are asked to assist in management of the hyponatremia
Past Medical History
Adenosquamous carcinoma right upper lobe lung
RATS
Multiple myeloma
Vertebral fracture
Osteoporosis
Polio
Ruptured T12 vertebra
Cataracts
Left cataract surgery
Hysterectomy
Appendectomy
Left elbow bursa sac removal
Umbilical hernia repair
Left knee bone growth removed
Social History
Tobacco: Non-Smoker
Alcohol: None
Family History
Family History: Not Pertinent
Allergies / Home Medications
Allergy/AdvReac Type Severity Reaction Status Date / Time
sertraline Allergy Unknown Verified 08/14/24 15:28
Sulfa (Sulfonamide Allergy Anaphylaxis Verified 08/14/24 15:28
Antibiotics)
�Medication �Instructions �Recorded �Confirmed �Type
denosumab 60 mg/mL subcutaneous 60 mg SC [id number] Osteoporosis 07/24/24 08/21/24 History
syringe (Prolia)
multivitamin 1 tab PO DAILY PRN when remembers 07/24/24 08/14/24 History
Alpha Gpc Choline 1 dose PO DAILY Supplement 08/14/24 08/14/24 History
Humic Fulvic Acid 1 dose PO DAILY Supplement 08/14/24 08/14/24 History
carboxymethylcellulose sodium 1 % 1 drp ophthalmic (eye) BID Eye 08/14/24 08/21/24 History
eye liquid gel drops Condition
melatonin 1 mg tablet 1 mg PO HS PRN insomnia 08/14/24 08/21/24 History
Review of Systems
-
No chest pain or shortness of breath. No excessive thirst or urination.
All other systems: Negative unless noted
Physical Exam
Vital Signs
Vital Signs
Temp Pulse Resp BP Pulse Ox
97.7 F 82 16 113/75 98
08/24/24 12:01 08/24/24 12:01 08/24/24 12:01 08/24/24 12:01 08/24/24 12:01
Lab Results
WBC 8.5 10^3/uL (4.8-10.8) 08/24/24 04:25
RBC 2.97 10^6/uL (4.20-5.40) L 08/24/24 04:25
Hgb 9.3 g/dL (12.0-16.0) L 08/24/24 04:25
Hct 27.6 % (37.0-47.0) L 08/24/24 04:25
Plt Count 201 10^3/uL (130-400) 08/24/24 04:25
Sodium 127 mmol/L (135-145) L 08/24/24 04:25
Potassium 4.6 mmol/L (3.5-5.1) 08/24/24 04:25
Chloride 96 mmol/L (98-107) L 08/24/24 04:25
Carbon Dioxide 29 mmol/L (22-30) 08/24/24 04:25
BUN 43 mg/dl (7-17) H 08/24/24 04:25
Creatinine 0.8 mg/dL (0.6-1.0) 08/24/24 04:25
eGFR > 60.00 08/24/24 04:25
Glucose 113 mg/dl (70-99) H 08/24/24 04:25
Calcium 8.5 mg/dl (8.4-10.2) 08/24/24 04:25
Albumin 3.8 g/dl (3.5-5.0) 08/15/24 08:26
Laboratory Tests
07/23/24 08/15/24
07:20 08:26
Sodium 140 131 L
Physical Exam
Patient is awake alert oriented and in no distress. Mood and affect were pleasant, insight and judgment were good. Pupils are equal round and reactive to light, extraocular movements are intact, sclera were anicteric. Hearing was normal, ears and
nose are intact. Oropharynx was clear. Neck was supple with trachea midline and no thyromegaly. Heart was regular rate and rhythm without rubs. Lower extremities without edema. Lungs were clear to auscultation bilaterally and with normal
excursion. Abdomen was soft, nontender, with normal active bowel sounds, and no hepatosplenomegaly. Skin was without rash and with normal turgor.
Data Reviewed
-
Radiology: Image Personally Visualized and interpreted (Chest x-ray 08/24/24 by my reading shows small right apical pneumothorax, right side chest tube)
Medical Tests (Nuc Med, Echo etc): Image Personally Visualized and interpreted (EKG on 08/21/2024 by my read shows normal sinus rhythm right bundle branch block septal Q)
Labs: Labs Reviewed by me
Old Records: Reviewed
Assessment/Plan
-
Assessment
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
New acute hyponatremia
Multiple myeloma in remission
Osteoporosis
Plan
Is quite likely that she will have excess ADH state given her lung cancer and now recent thoracic surgery
We will check urine studies. I suspect that this will show an elevated urine osmolality
Fluid restriction 48 ounces per day
Hypertonic saline tonight until urine studies are returned
She may benefit from Samsca
Serial BMP
[2024-08-24] MEDS: SODIUM CHLORIDE 3% 250 IV (16:05)
--- NOTE | 2024-08-24 16:45 | PTCARENOTE ---
VSS, sinus rhythm maintained on tele. Urine sample sent and 3% saline initiated as ordered.
[2024-08-24 17:01] LABS: Osmolality Urine 401 mOsm/kg (300-900)
[2024-08-24 17:13] LABS: Urine Sodium 6 mmol/L (30-90)
[2024-08-24] MEDS: ROXICODONE 2.5 MG PO (18:13)
--- NOTE | 2024-08-24 20:15 | PTCARENOTE ---
Assumed care of pt from dayshift RN. Walking rounds completed. Pt SR on the tele monitor. Occasionally valeriy-ing down into the 40s. Denies dizziness. Beta clau put on hold. BP 96/59. MAP 72. No edema. Palpable pulses throughout. Pt is 95% on RA.
Right pleural CT to water seal. Output appropriate. Intermittent air leak when pt coughs. Deep breathing encouraged. Lung sounds diminished B/L. Abdomen soft/nontender. +BS. Pt voiding w/o issue. 3% saline infusion running for low sodium. BMP drawn
and sent. Right lateral chest incisions approximated and FREIGHT SEPARATOR. PIV x1 intact. Pt assistx1 OOB. See worklist for full nursing assessment and interventions. Call louis within reach.
[2024-08-24 20:33] LABS: Blood Urea Nitrogen 37 mg/dl (7-17); Calcium 8.4 mg/dl (8.4-10.2); Carbon Dioxide 29 mmol/L (22-30); Chloride 98 mmol/L (98-107); Estimated Creatinine Clearance 53 ml/min; Glucose 126 mg/dl (70-99); Potassium 4.6 mmol/L (3.5-5.1); Sodium 130 mmol/L (135-145); eGFR > 60.00
[2024-08-25] VITALS (7 sets, daily range): BP systolic 99–129; BP diastolic 58–77; BMI 20.5
--- NOTE | 2024-08-25 00:38 | PTCARENOTE ---
No acute change in assessment. Pt SR on the tele monitor. HR 70s. No bradycardia noted. BP 111/67. MAP 81. Pt 96% on RA. CT assessment unchanged. All surgical sites stable. Pt assisted OOB to void and then repositioned back into bed. 3% saline
infusing as ordered. Call louis within reach.
--- NOTE | 2024-08-25 04:42 | PTCARENOTE ---
No change in assessment. Pt SR on the tele monitor. HR 70s. BP 107/58. MAP 74. Pt 96% on RA. CT assessment unchanged. Output WNL. All surgical sites stable. Pt states pain has improved. Labs drawn and sent. Weight obtained. Pt assisted OOB to void
then repositioned back into bed. Call louis within reach.
[2024-08-25 04:45] LABS: Hematocrit 25.2 % (37.0-47.0); Hemoglobin 8.2 g/dL (12.0-16.0); Mean Corp Hgb Conc. 32.5 g/dL (33.0-37.0); Mean Corpuscular Hgb 30.8 pg (27.0-31.0); Mean Corpuscular Volume 94.7 fL (81.0-99.0); Platelet Count 213 10^3/uL (130-400); Red Blood Cell Count 2.66 10^6/uL (4.20-5.40); White Blood Cell Count 6.3 10^3/uL (4.8-10.8)
[2024-08-25 05:05] LABS: Blood Urea Nitrogen 25 mg/dl (7-17); Calcium 8.5 mg/dl (8.4-10.2); Carbon Dioxide 29 mmol/L (22-30); Chloride 105 mmol/L (98-107); Estimated Creatinine Clearance 53 ml/min; Glucose 104 mg/dl (70-99); Magnesium 2.1 mg/dl (1.6-2.3); Potassium 4.9 mmol/L (3.5-5.1); Sodium 136 mmol/L (135-145); eGFR > 60.00
[2024-08-25] MEDS: TYLENOL 1000 MG PO ×3 (05:14→20:52)
[2024-08-25 05:35] LABS: TSH Reflex To Free T4 1.61 uIU/ml (0.47-4.68)
--- NOTE | 2024-08-25 06:34 | W.PN.CT ---
Addendum entered and electronically signed by Kris Coffman MD 08/25/24 09:38:
I saw and examined the patient.
The PA's note was reviewed and I agree with the note.
Comment:
No forced expiratory leak on exam this AM; no sig CT output - AM CXR w/o effusion/PTX - CT clamped at 8AM
Check CXR at noon w/ potential removal later today
Na 136 s/p 250mL of 3% saline by nephrology - continue to follow
Hgb 8.2 - started on PO iron/vit C
OOB/IS/ambulate
D/C planning for 1-2 days
Original Note:
Today's Communication / Plan
-
-pod #4
-noted bradycardia and frequent PACs yesterday and overnight. metoprolol started post op (not a home med) but held last night, now HR/arrhythmia seems to have improved in correlation with resolution of visual changes. AM EKG with NSR/RBBB (RBBB
present pre-op)
-R CT on water seal, did have small air leak with forceful cough last night, 35/325 out in 12/24 hrs. less dark drainage noted, sq heparin held, Hgb 11->9.3->8.2
-CXR with tiny stable R ptx, no change on this morning's CXR
-Na 127 today (133 on 08/23)- nephro consulted s/p 3% saline slow bolus, up to 136 this AM. repeat BMP at 1200, watch for overcorrection. Reports increased pain near chest tube site
-multimodal pain management
-OOB/IS
Assessment / Plan
-
s/p robotic assisted thoracic surgery (RATS) right upper lobectomy, wedge resection of the right middle lobe, radical lymphadenectomy, pexy of right middle lobe to right lower lobe to mitigate the risk of torsion by Dr. Sanon on 08/21/24, POD#4
-adenosquamous carcinoma
-multiple myeloma
-osteoporosis
-suspected CLAUDAI with brief O2 desaturation at night
-acute postop hyponatremia
Subjective
Procedure
s/p robotic assisted thoracic surgery (RATS) right upper lobectomy, wedge resection of the right middle lobe, radical lymphadenectomy, pexy of right middle lobe to right lower lobe to mitigate the risk of torsion on 08/21/[address] Sanon
-
Date of Service: August 25, 2024
Objective Data
-
Lab Results
08/25/24 04:17
PT 14.0 Sec (11.4-14.6) 08/15/24 08:26
INR 1.03 08/15/24 08:26
APTT 31.6 Sec (23.4-35.0) 08/15/24 08:26
Vital Signs
Vital Signs
Temp Pulse Resp BP Pulse Ox
97.5 F 75 18 107/58 96
08/25/24 04:06 08/25/24 04:06 08/25/24 04:06 08/25/24 04:06 08/25/24 04:06
CT Intake/Output/Weight
08/24/24 08/24/24 08/25/24
06:59 18:59 06:59
Intake Total 360 / 840 100 / 275 175 / 275
Output Total 775 / 1220 940 / 2425 1485 / 2425
Balance -415 / -380 -840 / -2150 -1310 / -2150
SaO2: 96
Physical Exam
-
General: Awake, Oriented and AOx3
Cardiovascular: Regular rate & rhythm, No Murmurs and No Rub
Respiratory: Clear and Decreased Breath Sounds
Incision: Clean, Dry and Intact
Extremities: No Edema
Data Reviewed
-
Lab Results: Results Reviewed
Medications: Active Meds Reviewed
Chest X-Ray: Report Reviewed
ECG: Report Reviewed
[2024-08-25] MEDS: LIDOCAINE 4% PATCH TOPICAL (09:11)
--- NOTE | 2024-08-25 09:15 | PTCARENOTE ---
Patient received from restaurant shift supervisor RN; AAOx3, responds spontaneously to RN and follows commands; Flat affect and forgetful; VSS; SR with RBBB on monitor; +2 DP and radial pulses; SpO2 95-98% on RA; Shallow respirations; Lungs diminished throughout;
IS 1000 ml; CTx1 clamped at 0800 by TEVIN Rosen draining serosanguineous drainage - no crepitus, air leak, or crepitus noted; Patient complaining of constipation but normoactive BS noted - laxatives given as scheduled; Patient urinating clear,
yellow urine in bathroom; Surgical sites intact; PIV x1 #20 RAC; See nursing documentation for further details
[2024-08-25] MEDS: REFRESH EYE DROPS (PF) 1 DROPS BOTH EYES ×2 (09:19→20:10)
[2024-08-25] MEDS: MIRALAX 17 GRAMS PO (09:19)
[2024-08-25] MEDS: NEURONTIN 100 MG PO ×3 (09:19→20:52)
[2024-08-25] MEDS: MUCINEX 600 MG PO ×2 (09:19→20:10)
[2024-08-25] MEDS: SENOKOT 8.6 MG PO ×2 (09:19→20:09)
[2024-08-25] MEDS: FEOSOL 325 MG PO (09:19)
[2024-08-25] MEDS: VITAMIN C 500 MG PO (09:19)
--- NOTE | 2024-08-25 10:11 | W.PN.NEPH.PH ---
Today's Communication / Plan
-
follow BMP
Assessment/Plan
-
Assessment
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
New acute hyponatremia
Multiple myeloma in remission
Osteoporosis
Plan
continue FR 48oz
follow BMP
she will likely be within accepted correction of 12/day
-
-
Date of Service: August 25, 2024
CC / HPI / ROS
-
Chief Complaint:
hyponatremia
History of Present Illness:
Na up to 136 after 3%
Hgb lower 8.2
BP stable
Review of Systems:
no CP/SOB
Labs
-
Labs:
WBC 6.3 10^3/uL (4.8-10.8) 08/25/24 04:17
RBC 2.66 10^6/uL (4.20-5.40) L 08/25/24 04:17
Hgb 8.2 g/dL (12.0-16.0) L 08/25/24 04:17
Hct 25.2 % (37.0-47.0) L 08/25/24 04:17
Plt Count 213 10^3/uL (130-400) 08/25/24 04:17
eGFR > 60.00 08/25/24 04:17
Albumin 3.8 g/dl (3.5-5.0) 08/15/24 08:26
Physical Exam
-
Vital Signs:
Vital Signs
Temp Pulse Resp BP Pulse Ox
98.2 F 83 16 108/60 97
08/25/24 09:07 08/25/24 09:09 08/25/24 09:07 08/25/24 09:09 08/25/24 09:09
Cardiovascular:: Regular rate and rhythm
Respiratory:: Bilateral: Coarse
Lung Excursion:: Normal
Abdomen:: Nontender and Soft
Bowel Sounds:: Normal
Extremity Edema:: None: Bilateral:
[2024-08-25 11:50] LABS: Blood Urea Nitrogen 22 mg/dl (7-17); Calcium 8.9 mg/dl (8.4-10.2); Carbon Dioxide 31 mmol/L (22-30); Chloride 99 mmol/L (98-107); Estimated Creatinine Clearance 53 ml/min; Glucose 107 mg/dl (70-99); Potassium 4.2 mmol/L (3.5-5.1); Sodium 136 mmol/L (135-145); eGFR > 60.00
--- NOTE | 2024-08-25 12:23 | PTCARENOTE ---
BMP drawn and sent to lab; CXR completed at bedside; Patient resting comfortably in bed
--- NOTE | 2024-08-25 13:40 | PTCARENOTE ---
Chest tube removed by TEVIN Cutler at 1320; Patient denies SOB or pain at this time; No bleeding noted at site
--- NOTE | 2024-08-25 20:00 | PTCARENOTE ---
received pt from [facility]. pt resting comfortably in bed. ST on monitor. pt AAOx4. VSS. heart sounds audible, radial and DP pulses palpable, no edema noted. lung sounds diminished at b/l bases, spo2 97% on RA. +BS x4 quadrants, abdomen, soft non
tender. pt voiding clear yellow urine. surgical sites maintained, CT dressing changed. right 20g AC removed to due to leaking, left FA 22g PIV placed. Labs drawn and sent. call louis within reach. will continue to monitor.
[2024-08-25] MEDS: LOPRESSOR 12.5 MG PO (20:09)
[2024-08-25] MEDS: MELATONIN 3 MG PO (20:52)
[2024-08-25 20:56] LABS: Blood Urea Nitrogen 20 mg/dl (7-17); Calcium 8.6 mg/dl (8.4-10.2); Carbon Dioxide 28 mmol/L (22-30); Chloride 102 mmol/L (98-107); Estimated Creatinine Clearance 53 ml/min; Glucose 139 mg/dl (70-99); Potassium 4.5 mmol/L (3.5-5.1); Sodium 134 mmol/L (135-145); eGFR > 60.00
[2024-08-26] VITALS (7 sets, daily range): BP systolic 95–133; BP diastolic 61–77; BMI 20.4
--- NOTE | 2024-08-26 | PTCARENOTE ---
pt assessment unchanged. NSR on monitor. VSS. will continue to monitor.
--- NOTE | 2024-08-26 01:00 | PTCARENOTE ---
Patient reassessed. No significant changes. Patient resting comfortably in bed. NSR w/ RBBB BP 123/69 HR 79 POX 95% RA. Lasix PO given per [facility] HEALTH SUPPORT SPECIALIST Bessie.
--- NOTE | 2024-08-26 04:00 | PTCARENOTE ---
Pt assessment unchanged. NSR on monitor. VSS. pt resting comfortably in bed. am labs drawn and sent. call louis within reach. will continue to monitor.
[2024-08-26 04:27] LABS: Hematocrit 25.1 % (37.0-47.0); Hemoglobin 8.3 g/dL (12.0-16.0); Mean Corp Hgb Conc. 33.1 g/dL (33.0-37.0); Mean Corpuscular Hgb 31.4 pg (27.0-31.0); Mean Corpuscular Volume 95.1 fL (81.0-99.0); Platelet Count 229 10^3/uL (130-400); Red Blood Cell Count 2.64 10^6/uL (4.20-5.40); Red Cell Dist. Width 13.1 % (11.5-14.5); White Blood Cell Count 7.3 10^3/uL (4.8-10.8)
[2024-08-26 04:53] LABS: Blood Urea Nitrogen 16 mg/dl (7-17); Carbon Dioxide 29 mmol/L (22-30); Chloride 104 mmol/L (98-107); Estimated Creatinine Clearance 53 ml/min; Glucose 105 mg/dl (70-99); Potassium 4.6 mmol/L (3.5-5.1); Sodium 134 mmol/L (135-145); eGFR > 60.00
--- NOTE | 2024-08-26 05:15 | PTCARENOTE ---
Patient tolerated shower. Discharge orders per CT ADMINISTRATIVE SUPPORT COORDINATOR Bessie. Reviewed medications, follow up visits, and fluid restrictions. IV removed. Questions encouraged.
--- NOTE | 2024-08-26 05:51 | W.PN.CT ---
Today's Communication / Plan
-
-pod #5
-No overnight events
-R CT removed 08/25. Dark drainage/'old blood' noted in atrium prior to removal, sq heparin held, Hgb 11->9.3->8.2->8.3 this morning. PO iron/vitamin C added.
-noted bradycardia and frequent PACs Monday into Monday. metoprolol started post op (not a home med) but held after bradycardia noted. EKG with NSR/RBBB (RBBB present pre-op). Restarted yesterday for exertional tachycardia, no bradycardia noted
last night
-CXR with tiny stable R ptx, no change on this morning's CXR
-Na 134 today (133 on 08/23 and 127 on 08/24)- nephro consulted s/p 3% saline slow bolus, now with fluid restriction
-multimodal pain management
-OOB/IS
Assessment / Plan
-
s/p robotic assisted thoracic surgery (RATS) right upper lobectomy, wedge resection of the right middle lobe, radical lymphadenectomy, pexy of right middle lobe to right lower lobe to mitigate the risk of torsion by Dr. Sanon on 08/21/24, POD#5
-adenosquamous carcinoma
-multiple myeloma
-osteoporosis
-suspected CLAUDIA with brief O2 desaturation at night
-acute postop hyponatremia
Subjective
Procedure
s/p robotic assisted thoracic surgery (RATS) right upper lobectomy, wedge resection of the right middle lobe, radical lymphadenectomy, pexy of right middle lobe to right lower lobe to mitigate the risk of torsion on 08/21/[address] Sanon
-
Date of Service: August 26, 2024
Objective Data
-
Lab Results
08/26/24 03:43
08/26/24 03:43
PT 14.0 Sec (11.4-14.6) 08/15/24 08:26
INR 1.03 08/15/24 08:26
APTT 31.6 Sec (23.4-35.0) 08/15/24 08:26
Vital Signs
Vital Signs
Temp Pulse Resp BP Pulse Ox
98.9 F 69 16 121/75 100
08/26/24 03:48 08/26/24 03:46 08/26/24 03:48 08/26/24 03:46 08/26/24 03:48
CT Intake/Output/Weight
08/25/24 08/25/24 08/26/24
06:59 18:59 06:59
Intake Total 175 / 275 850 / 1330 480 / 1330
Output Total 1485 / 2425 1380 / 2380 1000 / 2380
Balance -1310 / -2150 -530 / -1050 -520 / -1050
SaO2: 100
Physical Exam
-
General: Awake, Oriented and AOx3
Cardiovascular: Regular rate & rhythm, No Murmurs and No Rub
Respiratory: Clear and Equal
Incision: Clean, Dry and Intact
Extremities: No Edema and No Erythema
Data Reviewed
-
Lab Results: Results Reviewed
Medications: Active Meds Reviewed
Chest X-Ray: Report Reviewed and Image Reviewed
ECG: Report Reviewed
[2024-08-26] MEDS: TYLENOL 1000 MG PO ×2 (05:58→14:38)
[2024-08-26] MEDS: SENOKOT 8.6 MG PO (07:38)
[2024-08-26] MEDS: FEOSOL 325 MG PO (07:39)
[2024-08-26] MEDS: MUCINEX 600 MG PO (07:39)
[2024-08-26] MEDS: VITAMIN C 500 MG PO (07:39)
[2024-08-26] MEDS: NEURONTIN 100 MG PO ×2 (07:39→15:59)
[2024-08-26] MEDS: REFRESH EYE DROPS (PF) 1 DROPS BOTH EYES (07:40)
[2024-08-26] MEDS: MIRALAX 17 GRAMS PO (07:40)
[2024-08-26] MEDS: LIDOCAINE 4% PATCH TOPICAL (07:41)
--- NOTE | 2024-08-26 08:00 | PTCARENOTE ---
Patient recieved from RN @ 0700. Patient sitting in chair comfortably with call louis in reach SR w/ RBBB BP 95/68 HR 77 POX 98% RA. Notified CT ON CALL PHARMACY TECHNICIAN Bessie of BP and ordered to hold morning metoprolol. AOx3. Heart sounds audible. Radial and pedal
pulses present bilaterally. Lungs clear bilaterally. IS 1000. Bowel sounds normoactive. No BM noted. 3 right lateral puncture sites dry and intact open to air. Chest tube dressing dry and intact. Left forearm PIV patent and intact.
--- NOTE | 2024-08-26 08:25 | W.PN.NEPH.PH ---
Today's Communication / Plan
-
maintain FR
follow bmp
Assessment/Plan
-
Assessment
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
New acute hyponatremia
Multiple myeloma in remission
Osteoporosis
Plan
continue FR 48oz
follow BMP, sodium stable at 132
she will likely be within accepted correction of 12/day
-
-
Date of Service: August 26, 2024
CC / HPI / ROS
-
Chief Complaint:
hyponatremia
History of Present Illness:
Na up to 132 on FR
Hgb lower 8.2
BP labile
Review of Systems:
no CP/SOB
non oliguric
Labs
-
Labs:
WBC 7.3 10^3/uL (4.8-10.8) 08/26/24 03:43
RBC 2.64 10^6/uL (4.20-5.40) L 08/26/24 03:43
Hgb 8.3 g/dL (12.0-16.0) L 08/26/24 03:43
Hct 25.1 % (37.0-47.0) L 08/26/24 03:43
Plt Count 229 10^3/uL (130-400) 08/26/24 03:43
Sodium 134 mmol/L (135-145) L 08/26/24 03:43
Potassium 4.6 mmol/L (3.5-5.1) 08/26/24 03:43
Chloride 104 mmol/L (98-107) 08/26/24 03:43
Carbon Dioxide 29 mmol/L (22-30) 08/26/24 03:43
BUN 16 mg/dl (7-17) 08/26/24 03:43
Creatinine 0.7 mg/dL (0.6-1.0) 08/26/24 03:43
eGFR > 60.00 08/26/24 03:43
Glucose 105 mg/dl (70-99) H 08/26/24 03:43
Calcium 9.0 mg/dl (8.4-10.2) 08/26/24 03:43
Albumin 3.8 g/dl (3.5-5.0) 08/15/24 08:26
Physical Exam
-
Vital Signs:
Vital Signs
Temp Pulse Resp BP Pulse Ox
98.9 F 76 16 95/68 98
08/26/24 07:36 08/26/24 07:35 08/26/24 07:36 08/26/24 07:35 08/26/24 07:36
Cardiovascular:: Regular rate and rhythm
Respiratory:: Bilateral: Coarse
Lung Excursion:: Normal
Abdomen:: Nontender and Soft
Bowel Sounds:: Normal
Extremity Edema:: None: Bilateral:
[2024-08-26] MEDS: LOPRESSOR PO (08:58)
--- NOTE | 2024-08-26 09:47 | CM ---
Reviewed chart. Met with Mrs. Bloom to review discharge plans. She states she is feeling better but tired. We reviewed a home visit by the Transitional Care Nurse. She is agreeable to a home visit. Prior to admission she resides alone in a two
story [facility]. She has a first floor set-up. Prior to admission she was independent with ambulation and adls. She does not have any DME in the home. Her friend will provide transportation home. She has a prescription plan and uses [facility].
Medical work-up in progress. The discharge plan is to return home with a home visit by the Transitional Care Nurse when medically stable.
--- NOTE | 2024-08-26 10:57 | CON.CAR ---
Addendum entered and electronically signed by Keon Koroam MD 08/26/24 13:26:
I saw and examined the patient.
The COIL STRAPPER's note was reviewed and I agree with the note.
Comment:
73-year-old female with no significant cardiac history status post lobectomy. She was started on metoprolol 12.5 mg daily for atrial fibrillation prophylaxis which is standard protocol and then developed episodes of tachycardia and bradycardia for
which cardiology is consulted. She has no cardiovascular complaints at the time of my assessment. Review of her telemetry reveals sinus rhythm with occasional sinus tachycardia and sinus bradycardia. She also has occasional blocked PACs but no
significant pauses and no arrhythmias. Exam is notable for a well-appearing woman with regular rate and rhythm, no murmurs, lungs clear to auscultation, no lower extremity edema. She has no concerning arrhythmias or pauses on telemetry. She has
been in sinus rhythm with occasional tachycardia and bradycardia. Her brief pauses (<1 sec) are due to blocked PACs. Would not make any changes at this time. She can continue metoprolol 12.5 mg daily for 1 month as is protocol post lobectomy.
She does not need any cardiology follow-up. She is getting an echocardiogram today, and if this is normal she is safe to be discharged from a cardiovascular standpoint. We will sign off at this time. Please call with any additional questions or
concerns.
Original Note:
Consultation
Consultation Request
Date/Time Consultation Requested: 08/26/2024 09:00
Date/Time Consultation Performed: 08/26/2024 10:20
Requesting Provider: GERONIMO Beck
Performing Provider: GERONIMO Beltran for Dr. Koroma
Reason for Consultation: Bradycardia/Tachycardia
Medical History
-
Chief Complaint: Lobectomy
History of Present Illness:
Marietta Bloom is a 73-year-old female with RBBB, multiple myeloma (in remission) and osteoporosis who was found to have a right upper lobe nodule and subsequently underwent PET CT scan with moderate FDG uptake with right hilar lymph node uptake.
Additional workup via robotic assisted endoluminal bronchoscopy performed 07/26/2024 showing a final pathology as adenosquamous carcinoma. She presented for scheduled RATS with Dr. Sanon. She was given Lopressor postoperatively. She had some
bradycardia. She has also had some bouts of tachycardia. Cardiology was consulted to assist with rhythm management. She is feeling well without chest pain. She reports some postoperative shortness of breath which has remained unchanged.
Past Medical History
Past Medical History: Cancer (Multiple myeloma) and Other (RBBB, Osteoporosis)
Past Surgical History: Appendectomy, Gynecological and Orthopedic
Social History
Tobacco: Non-Smoker
Alcohol: None
Drug: None
Personal:
Employment: Retired
Family History
Family History: Reviewed & Not Pertinent
Allergies / Home Medications
Allergy/AdvReac Type Severity Reaction Status Date / Time
sertraline Allergy Unknown Verified 08/14/24 15:28
Sulfa (Sulfonamide Allergy Anaphylaxis Verified 08/14/24 15:28
Antibiotics)
�Medication �Instructions �Recorded �Confirmed �Type
denosumab 60 mg/mL subcutaneous 60 mg SC [id number] Osteoporosis 07/24/24 08/21/24 History
syringe (Prolia)
multivitamin 1 tab PO DAILY PRN when remembers 07/24/24 08/14/24 History
Alpha Gpc Choline 1 dose PO DAILY Supplement 08/14/24 08/14/24 History
Humic Fulvic Acid 1 dose PO DAILY Supplement 08/14/24 08/14/24 History
carboxymethylcellulose sodium 1 % 1 drp ophthalmic (eye) BID Eye 08/14/24 08/21/24 History
eye liquid gel drops Condition
melatonin 1 mg tablet 1 mg PO HS PRN insomnia 08/14/24 08/21/24 History
Review of Systems
-
History Source: Patient
All other systems: Negative unless noted
Constitutional: No Symptoms
EENT: No Symptoms
Respiratory: Trouble Breathing
Cardiac: No Symptoms
Abdomen/GI: No Symptoms
: No Symptoms
Musculoskeletal: No Symptoms
Skin: No Symptoms
Neurological: No Symptoms
Endocrine: No Symptoms
Hematologic/Lymphatic: No Symptoms
Physical Exam
Vital Signs
Temp Pulse Resp BP Pulse Ox
98.9 F 77 16 100/61 98
08/26/24 07:36 08/26/24 08:51 08/26/24 07:36 08/26/24 08:51 08/26/24 10:49
Lab Results
08/26/24 03:43
08/26/24 03:43
Physical Exam
General: Well Developed, Well Nourished, No Apparent Distress and Comfortable
HEENT: Normocephalic, Anicteric and Moist Mucous Membranes
Respiratory: Clear and Non Labored Respirations
Cardiac: S1/S2 and Regular Rhythm
Breast: Deferred by me
GI: Soft, Non Tender, Non Distended and Normal Bowel Sounds
Rectal: Deferred by Provider
Genito-urinary: No Costovertebral Tender
Musculoskeletal: No Clubbing, No Cyanosis and No Edema
Skin: Warm and Dry
Neuro: AO x 3
Psych: Calm
Impression / Plan
-
IMPRESSION/PLAN: 73F with multiple myeloma (in remission), osteoporosis, and RBBB presented for RATS ([facility] [[email or web address]
Adenosquamous carcinoma of the right upper lobe S/P RATS by Dr Sanon 08/21/2024
-Post operative care per CT surgery
Tachycardia/Bradycardia
-Variable HR with blocked PACs
-No significant bradycardia/pauses
-Echocardiogram
Hyponatremia, Nephrology following
RBBB, present pre-op
Data Reviewed
-
EKG: Report Reviewed by me (Sinus rhythm RBBB, rate 75)
Labs: Labs Reviewed by me
Old Records: Reviewed
[2024-08-26] MEDS: LASIX 40 MG PO (12:16)
--- NOTE | 2024-08-26 13:00 | PTCARENOTE ---
Patient reassessed. No significant changes. Patient resting comfortably in bed. NSR w/ RBBB BP 123/69 HR 79 POX 95% RA. Lasix PO given per CT CUT OUT WORKER Bessie.
--- NOTE | 2024-08-27 06:44 | W.DCSUMMARY ---
Discharge Summary
Discharge Data
Date of Admission: 08/21/24
Date of Discharge: 08/26/24
Total time spent discharging patient (in min): 35
-
Pending Results: No
Hospital Course
Primary care physician:
Dr. Cox
Outpatient water and gas helper:
Dr. Miguel
Inpatient consultants:
CBC, nephrology
Procedures:
1. Robotic assisted thoracic surgery (RATS) right upper lobectomy
Primary Diagnosis:
1. Right upper lobe adenosquamous carcinoma
Secondary Diagnoses:
1. Multiple myeloma
2. acute post-op Hyponatermia
3. MRSA
4. Osteoporosis
5. History of polio as a child
6. Ruptured T12 vertebrae
7. Underweight, BMI of 19
HPI: 73 y/o female seen in the office by Dr. Sanon presents electively on 08/21 for a elective robotic assisted right upper lobectomy.
Hospital course: Patient presented electively on 08/21 for an elective robotic assisted right upper lobe ectomy. Postoperatively she returned to PACU and then CVICU for the remainder of her care. Chest x-ray did not show pneumothorax so she was
placed on waterseal. She was also started on subcu heparin due to OR pathology returning as adenosquamous carcinoma. On 08/22 postoperative day 1 patient was placed on a clamp trial however repeat x-ray showed a small pneumothorax and was placed
back on waterseal. On 08/23 postoperative day 2 patient had a intermittent airleak with crepitus and small pneumothorax and was kept on waterseal per Dr. Sanon. On 08/24 postoperative day 3 patient had a positive airleak with cough along with dark
bloody drainage and a downtrend of hemoglobin therefore subcu heparin was discontinued. Nephrology was consulted for sodium of 127 and 3% saline was given. On 08/25 postoperative day 4 patient's sodium began to normalize. Patient had a minimal
airleak with cough therefore patient was clamped for 4 hours and repeat x-ray showed a 1% pneumothorax. Therefore the chest tube was discontinued. Patient's hemoglobin was 8.2 and was started on p.o. iron and vitamin C. On 08/26 patient's
hemoglobin remained stable. It was noted that over the weekend she was having episodes of bradycardia and tachycardia despite being on low-dose metoprolol postoperatively. Cardiology was consulted and strips were reviewed and echocardiogram was
performed and she was deemed stable for discharge home.
Home medication changes:
see below
Discharge Plan
-
Patient Disposition: Home (Routine Discharge)
Discharge Diagnosis/Procedures: adenosquamous carcinoma of the lung s/p robotic assisted RUL lobectomy/RML wedge resection
Condition: Good
Diet: As tolerated and Restrict fluids to 48 oz
Activity: No strenuous activity
Driving Restrictions: No driving for 1 week
Bathing Restrictions: OK to Shower
Blood Work: BMP in 1 week
Wound Care: keep chest tube dressing intact x24 hours, then ok to shower regularly; (green) chest tube suture to be removed by visiting nurse
Specialty Instructions: Weigh Daily- Call MD for wt gain/loss 3 lbs overnight/5 lbs in 1 week
Referrals:
Larry Cox DO [Family Provider] -
Christopher Sanon MD [Active] - 09/09/24 1:30 pm
Additional Discharge Medication Instructions: You are on toprol-xl for heart rate control after lung surgery for 30 days
Prescriptions:
New
acetaminophen 325 mg Tablet
650 mg PO Q4HPRN PRN (Reason: mild pain,headache,temp >101F ) Qty: 0 0RF
gabapentin 100 mg Capsule
100 mg PO TID Qty: 90 0RF
oxycodone 5 mg Tablet
2.5 mg PO Q6HPRN PRN (Reason: severe pain) Qty: 20 0RF
metoprolol succinate [Toprol XL] 25 mg tablet extended release 24 hr
12.5 mg PO DAILY Qty: 30 0RF
Continued
multivitamin Tablet
1 tab PO DAILY PRN (Reason: when remembers)
Prolia 60 mg/mL Syringe
60 mg SC [id number]
melatonin 1 mg Tablet
1 mg PO HS PRN (Reason: insomnia)
carboxymethylcellulose sodium 1 % Drops, Liquid Gel
1 drp OPHTHALMIC (EYE) BID
Patient Comments:
Pt reports to not take this medication
Alpha Gpc Choline
1 dose PO DAILY
Patient Comments:
Pt reports to not take this medication
Humic Fulvic Acid
1 dose PO DAILY
Patient Comments:
Pt reports to not take this medication
Discharge Orders:
Discharge Patient (As Directed); Ordered 08/26/24
Ordered By: Eusebia Up
Care Plan Goals
Care Plan Goals:
Problem: Readiness for enhanced knowledge related to diagnosis and treatment plan
Goal: Understand your diagnosis and treatment plan needs, including medications if applicable.
Instructions: Know your diagnosis, underlying causes and treatment plan options, including medications if applicable. Consult with your health care team to learn about your diagnosis and treatment plan, including medications if applicable.
Discharge Date and Time
Discharge Date/Time: 08/26/24 17:29
Print Language: SLOVAK
--- NOTE | 2024-08-27 12:21 | PN.CDI ---
CDI
- -
CDI:
Physician Documentation Request
Admit Date: 08/21/24 07:[address] Surgery,
Clinical Indicators:
Patient admitted with adenosquamous carcinoma of the right upper lobe; s/p RATS right upper lobectomy 08/21.
08/23 PN, 'CT on water seal overnight...put out 155/385 dark bloody output'
08/25 Ferrous sulfate 325 mg po daily ordered.
Hgb/Hct trend:
08/22/24 08/24/24 08/25/24
05:05 04:25 04:17
Hgb 11.0 L 9.3 L 8.2 L
Hct 32.2 L 27.6 L 25.2 L
08/26/24
03:43
Hgb 8.3 L
Hct 25.1 L
Based on the above, could you clarify in the progress notes, the appropriate diagnosis, if significant, that supports the above abnormalities and additional evaluation, monitoring and/or treatment rendered:
Anemia, multifactorial, due to acute blood loss and neoplastic disease
Acute blood loss anemia
Anemia, other (please specify)
Drop in hemoglobin only
Other
Use of terms such as suspected, likely, concern for, or probable (associated with a specific diagnosis that is being evaluated, monitored, or treated as if it exists) are acceptable and can be coded in the inpatient setting, when documented at the
time of discharge.
Thank you,
Asia Vargas RN BSN
CDI Specialist
available via tiger text
Please use your independent medical judgment in providing your response.
--- NOTE | 2024-08-27 12:44 | W.PN.UPDATE ---
Update Note
Progress Note Update
CDI query:
Atelectasis is a valid diagnosis
Acute blood loss anemia
Hyponatremia
== END 2024-08-26 17:29 | disposition home or self-care (01) | DRG 164 ==
LOC: CVICU 07:11
PROVIDERS: Clinical Nurse Specialist Acute Care; Nurse Practitioner; Physician Assistant Medical; ADMITTING PHYSICIAN Thoracic Surgery (Cardiothoracic Vascular Surgery); CONSULT PHYSICIAN Specialist; CONSULT PHYSICIAN Student in an Organized Health Care Education/Training Program; FAMILY PHYSICIAN Family Medicine
PROC: 0BBD4ZZ Excision of Right Middle Lung Lobe, Percutaneous Endoscopic Approach (ICD-10-PCS; 2024-08-21)
PROC: 07T74ZZ Resection of Thorax Lymphatic, Percutaneous Endoscopic Approach (ICD-10-PCS; 2024-08-21)
PROC: 8E0W4CZ Robotic Assisted Procedure of Trunk Region, Percutaneous Endoscopic Approach (ICD-10-PCS; 2024-08-21)
PROC: 0BTC4ZZ Resection of Right Upper Lung Lobe, Percutaneous Endoscopic Approach (ICD-10-PCS; 2024-08-21)
DX: C34.11 Malignant neoplasm of upper lobe, right bronchus or lung (principal); C90.01 Multiple myeloma in remission; Z68.1 Body mass index [BMI] 19.9 or less, adult; E87.1 Hypo-osmolality and hyponatremia; J98.11 Atelectasis; J95.811 Postprocedural pneumothorax; D62 Acute posthemorrhagic anemia; Y83.8 Other surgical procedures as the cause of abnormal reaction of the patient, or of later complication, without mention of misadventure at the time of the procedure; Y92.239 Unspecified place in hospital as the place of occurrence of the external cause; R00.0 Tachycardia, unspecified; R00.1 Bradycardia, unspecified; R63.6 Underweight; I45.10 Unspecified right bundle-branch block; M81.0 Age-related osteoporosis without current pathological fracture; Z60.2 Problems related to living alone; Z87.81 Personal history of (healed) traumatic fracture; Z86.14 Personal history of Methicillin resistant Staphylococcus aureus infection; Z86.12 Personal history of poliomyelitis; Z82.49 Family history of ischemic heart disease and other diseases of the circulatory system; Z80.3 Family history of malignant neoplasm of breast; Z80.0 Family history of malignant neoplasm of digestive organs; Z80.7 Family history of other malignant neoplasms of lymphoid, hematopoietic and related tissues; Z88.2 Allergy status to sulfonamides; Z88.8 Allergy status to other drugs, medicaments and biological substances; Z90.710 Acquired absence of both cervix and uterus; Z98.42 Cataract extraction status, left eye
CPT/HCPCS: 88305; 88307; 88309; 32505; 36415; 71045; 80048; 80053; 81003; 81015; 82248; 82570; 83036; 83735; 83935; 84300; 84443; 85025; 85027; 85610; 85730; 86850; 86900; 86901; 86920; 87070; 88313; 93005; 93306; 93880; J2597

== ENCOUNTER → 2024-08-30 08:35 | Outpatient (REF) | payer OTHER, SELFPAY ==
[2024-08-30 09:53] LABS: % Basophils 0.6 % (0-2); % Eosinophils 3.6 % (0-6); % Immature Granulocytes 0.7 % (0-0.5); % Lymphocytes 14.8 % (20.5-51.1); % Monocytes 8.9 % (1.7-9.3); % Neutrophils 71.4 % (42.2-75.2); Absolute Basophils 0.1 10^3/uL (0-0.2); Absolute Eosinophils 0.3 10^3/uL (0-0.7); Absolute Immature Granulocytes 0.1 10^3/uL (0-0.05); Absolute Lymphocytes 1.3 10^3/uL (1.2-3.4); Absolute Monocytes 0.8 10^3/uL (0.1-0.6); Absolute Neutrophils 6.2 10^3/uL (1.4-6.5); Hematocrit 30.6 % (37.0-47.0); Hemoglobin 9.9 g/dL (12.0-16.0); Mean Corp Hgb Conc. 32.4 g/dL (33.0-37.0); Mean Corpuscular Hgb 31.6 pg (27.0-31.0); Mean Corpuscular Volume 97.8 fL (81.0-99.0); Mean Platelet Volume 9.2 fL (7.4-10.4); Nucleated Red Blood Cells % 0 %; Platelet Count 432 10^3/uL (130-400); Red Blood Cell Count 3.13 10^6/uL (4.20-5.40); Red Cell Dist. Width 13.7 % (11.5-14.5); White Blood Cell Count 8.7 10^3/uL (4.8-10.8)
[2024-08-30 10:50] LABS: Blood Urea Nitrogen 14 mg/dl (7-17); Calcium 9.5 mg/dl (8.4-10.2); Carbon Dioxide 26 mmol/L (22-30); Chloride 102 mmol/L (98-107); Glucose 113 mg/dl (70-99); Sodium 136 mmol/L (135-145); eGFR > 60.00
== END ==
LOC: REG 08:35
PROVIDERS: ATTENDING PHYSICIAN Thoracic Surgery (Cardiothoracic Vascular Surgery); FAMILY PHYSICIAN Family Medicine
DX: Z09 Encounter for follow-up examination after completed treatment for conditions other than malignant neoplasm (principal); D64.9 Anemia, unspecified
CPT/HCPCS: 36415; 80048; 85025

== ENCOUNTER → 2024-09-02 10:59 | Outpatient (REF) | payer OTHER, SELFPAY | LOC: RAD 10:59 | PROVIDERS: ATTENDING PHYSICIAN Thoracic Surgery (Cardiothoracic Vascular Surgery); FAMILY PHYSICIAN Family Medicine | DX: R06.02 Shortness of breath (principal) | CPT/HCPCS: 71046 ==

== ENCOUNTER → 2024-09-03 18:29 | Outpatient (REF) | payer OTHER, SELFPAY | LOC: MRI 18:29 | PROVIDERS: ATTENDING PHYSICIAN Internal Medicine Critical Care Medicine; FAMILY PHYSICIAN Family Medicine | DX: C34.91 Malignant neoplasm of unspecified part of right bronchus or lung (principal) | CPT/HCPCS: 70553; A9575 ==

== ENCOUNTER → 2024-10-10 08:11 | Outpatient (REF) | payer OTHER, SELFPAY | LOC: RAD 08:11 | PROVIDERS: ATTENDING PHYSICIAN Internal Medicine Critical Care Medicine; FAMILY PHYSICIAN Family Medicine | DX: R06.02 Shortness of breath (principal) | CPT/HCPCS: 71046 ==

== ENCOUNTER → 2024-10-22 07:16 | Outpatient (REF) | payer OTHER, SELFPAY | LOC: RAD 07:16 | PROVIDERS: ATTENDING PHYSICIAN Internal Medicine Critical Care Medicine; FAMILY PHYSICIAN Family Medicine | DX: R06.02 Shortness of breath (principal) | CPT/HCPCS: 71275; Q9967 ==

== ENCOUNTER 2024-10-28 06:18 | Day surgery (SDC) | payer OTHER, SELFPAY ==
[2024-10-28] VITALS (7 sets, daily range): BP systolic 128–152; BP diastolic 73–92; BMI 18.9
[2024-10-28] MEDS: VENTOLIN NEBULES 2.5 MG INH (15:25)
== END 2024-10-28 15:35 | disposition home or self-care (01) ==
LOC: GI 06:18
PROVIDERS: ATTENDING PHYSICIAN Internal Medicine Critical Care Medicine
DX: J98.11 Atelectasis (principal); R84.6 Abnormal cytological findings in specimens from respiratory organs and thorax
CPT/HCPCS: 31624; 71045; 87070; 87102; 87116; 87205; 88112; 94640

== ENCOUNTER 2024-11-20 07:37 | Inpatient (IN) | payer OTHER, SELFPAY ==
[2024-11-05 08:27] VITALS: BMI 19.2
[2024-11-05 09:10] LABS: % Basophils 0.6 % (0-2); % Eosinophils 1.4 % (0-6); % Immature Granulocytes 0.3 % (0-0.5); % Lymphocytes 18.2 % (20.5-51.1); % Monocytes 10.8 % (1.7-9.3); % Neutrophils 68.7 % (42.2-75.2); Absolute Eosinophils 0.1 10^3/uL (0-0.7); Absolute Lymphocytes 1.3 10^3/uL (1.2-3.4); Absolute Monocytes 0.8 10^3/uL (0.1-0.6); Absolute Neutrophils 4.8 10^3/uL (1.4-6.5); Hemoglobin 12.2 g/dL (12.0-16.0); Mean Corp Hgb Conc. 32.1 g/dL (33.0-37.0); Mean Corpuscular Hgb 29.2 pg (27.0-31.0); Mean Corpuscular Volume 90.9 fL (81.0-99.0); Mean Platelet Volume 9.6 fL (7.4-10.4); Nucleated Red Blood Cells % 0 %; Platelet Count 325 10^3/uL (130-400); Red Blood Cell Count 4.18 10^6/uL (4.20-5.40); Red Cell Dist. Width 13.4 % (11.5-14.5); White Blood Cell Count 6.9 10^3/uL (4.8-10.8)
[2024-11-05 09:22] LABS: ALT (SGPT) 14 U/L (0-35); AST (SGOT) 20 U/L (14-36); Albumin 3.9 g/dl (3.5-5.0); Alkaline Phosphatase 76 U/L (38-126); Blood Urea Nitrogen 17 mg/dl (7-17); Calcium 9.1 mg/dl (8.4-10.2); Carbon Dioxide 29 mmol/L (22-30); Chloride 104 mmol/L (98-107); Direct Bilirubin 0.1 mg/dl (0.0-0.4); Estimated Creatinine Clearance 53 ml/min; Glucose 113 mg/dl (70-99); Potassium 4.2 mmol/L (3.5-5.1); Sodium 138 mmol/L (135-145); Total Bilirubin 0.8 mg/dl (0.2-1.3); Total Protein 8.7 g/dl (6.3-8.2); eGFR > 60.00
[2024-11-05 09:23] LABS: PT 13.5 Sec (11.4-14.6)
[2024-11-05 09:29] LABS: Urine Albumin Negative (Neg - Trace); Urine Bilirubin Negative (Negative); Urine Character Clear (Clear); Urine Color Yellow; Urine Glucose Negative (Negative); Urine Ketone Negative (Negative); Urine Leukocyte Negative (Negative); Urine Nitrite Negative (Negative); Urine Occult Blood Negative (Negative); Urine Urobilinogen Negative (Neg - 1+)
[2024-11-05 09:49] LABS: Glycohemoglobin (HgbA1c) 5.7 % (4.0-5.6)
[2024-11-05 10:42] LABS: B.E. -1.6 mmol/L; HCO3 20.6 mmol/L (21-28); O2 Saturation % 99.2 % (94-98); PCO2 27 mmHg (32-35); PO2 101 mmHg (83-108); pH 7.49 (7.35-7.45)
--- NOTE | 2024-11-05 11:15 | CM ---
spoke with pt in PAT's, pt lives alone in an apt with no steps to enter. she tells me that her memory is not good and needs everything in writting. written detailed instructions including instructions for night before/morning of and arrival
information given to pt. she has the soap and Lung educ book. she is agreeable to a f/u visit from the ct transitional care nurse after dc. she does not have family and only a few friends in the area. cm role explained and all questions answered.
plan is for right lung surgery 11/20. cm to follow.
[2024-11-20] VITALS (15 sets, daily range): BP systolic 104–156; BP diastolic 67–91; BMI 19.1
[2024-11-20] MEDS: LOPRESSOR 12.5 MG PO ×2 (08:15→19:57)
--- NOTE | 2024-11-20 08:40 | CM ---
Reviewed chart. Ms. Bloom is in the operating today. Prior to admission she resides alone in an apartment without any steps to enter. Prior to admission she was independent with ambulation and adls. She does not have any DME in the home. Medical
work-up in progress. The discharge plan is to return home with a home visit by the Transitional Care Nurse when medically stable.
--- NOTE | 2024-11-20 10:15 | PTCARENOTE ---
Patient taken to CVOR; Clipped and prepped; Wiped with CHG wipes; IV Ancef taken to CVOR with patient chart; PO Metoprolol given
--- NOTE | 2024-11-20 11:13 | W.CVOR.SURPR ---
CVOR Surgeon Immed Pre Op
-
I have examined this patient prior to performance of the scheduled procedure.
The patient's condition is unchanged from the time of the dictated/written History and
Physical and the patient is able to undergo the scheduled procedure.
RML Detorsion/Reduction vs Resection
[2024-11-20 11:20] LABS: Urine Albumin Negative (Neg - Trace); Urine Bilirubin Negative (Negative); Urine Character Clear (Clear); Urine Color Yellow; Urine Glucose Negative (Negative); Urine Ketone Negative (Negative); Urine Leukocyte Negative (Negative); Urine Nitrite Negative (Negative); Urine Occult Blood Negative (Negative); Urine Specific Gravity 1.015 (<1.030); Urine Urobilinogen Negative (Neg - 1+)
--- NOTE | 2024-11-20 13:49 | W.PN.CT.SURG ---
CT Surgery Operative Note
-
THORACIC SURGERY OPERATIVE REPORT
Preoperative Diagnosis: Right middle lobe torsion
Postoperative Diagnosis: Same, dense adhesions causing the right middle lobe to fold upon itself
Procedure(s) Performed:
1. Robotic assisted thoracic surgery [RATS]
2. Adhesiolysis and decortication of both the right upper and right middle lobes
3. Right middle lobectomy
4. Intercostal nerve block interspaces 4, 5, 6, 7
Date of Surgery: 11/20/2024
Comorbidities:
1. History of right upper lobe lung cancer status post resection and lymph node dissection
2. Increasing shortness of breath approximately 2 weeks after surgery and was found to have atelectasis of the medial portion of the right middle lobe concerning for torsion
3. CLAUDIA
4. Osteoporosis
5. Multiple myeloma
Attending Surgeon: Christopher Sanon MD, MS
Assistants: Christopher Rich PA-C (present and necessary to welder first class, exchanging robotic instruments, retraction, suction, exposure, suture management, and wound closure under my direction)
Anesthesiology: Bandar Higginbotham MD and Desi Abarca CRNA
Scrub and Circulating RNs: Corie Yan RN, Annabelle Brito RN & Bessie Leahy RN
Anesthesia: Dual Lumen GETA
EBL: 25 cc
Products: None
Indication(s) for Procedures: This is a 74-year-old female who underwent robotic assisted thoracic surgery to form of a right upper lobectomy with lymph node dissection on 08/21/2024 for right upper lobe primary lung cancer. She was doing well
postoperatively left the hospital on postop day #2 without complications. Approximately 2 weeks after that she developed shortness of breath with activity. This was persistent and did not improve with pulmonary optimization. She underwent a
bronchoscopy as well as a CT scan of the chest that was concerning for right middle lobe torsion. Given the findings, she was counseled about reoperative surgery and the need for reduction of the right middle lobe however there is a possibility for
need of a right middle lobectomy. She opted to move forward with surgery
Findings: There were dense adhesions intrathoracic lead, there were also dense adhesions around the staple lines almost as if she had a hyper response to inflammation and surgery. There was no theodora coarsening of the hilum of the right middle lobe
however the right middle lobe itself had healed in a folded fashion with dense scar tissue keeping it from opening up. After adhesiolysis and freeing up the right middle lobe, hyperinflation with a Valsalva maneuver demonstrated filling of the
right lower lobe to the entire chest cavity however there is no filling at all of the right middle lobe. Given this finding, I opted to perform a resection using a large 60 mm green load stapler across the hilum of the right middle lobe which was
small in size. This was resected from the chest cavity. Any additional scar tissue on the right lower lobe was decorticated and lysed. There was a small rind overlying the right lower lobe that came from the scar tissue to the chest wall.
Overall there is excellent expansion the right lower lobe. The hilum was reinforced with CoSeal. There was a minimal +1 airleak at the inclusion of the case on positive pressure ventilation.
Specimen(s):
Right middle lobe
Description of Procedure: The patient was taken to the operating room. Induction via general anesthesia with endotracheal intubation was performed and peripheral venous access and arterial monitoring were inserted. Their identity and procedure to be
performed were verified and they were positioned with the right side up on the operating table. The patient was then prepped and draped in a sterile fashion. A preoperative time-out was performed with all members of the team present. The previous
incisions were marked out and a Veress needle was used to insufflate the chest after isolating the lung. An 8 mm port was placed in the midaxillary line at approximately the eighth intercostal space and confirmed to be intrathoracic without
significant pulmonary injury. I then surveyed the chest for any other dense adhesions found that there was adhesions mostly up towards the mid chest wall. 2 additional 8 mm trocars were inserted on either side and a 12 mm air seal port down
towards diaphragmatic insertion using a spatula carting the right arm and Cardiere forceps and my left arm, adhesions were taken down using electrocautery. I then worked my way towards right middle lobe freeing up adhesions from that lobe to the
SVC as well as the medial aspect of the chest and to the hilum. There were dense adhesions here at the previous staple lines. Oddly enough, the right middle lobe had healed in a folded fashion with dense scar tissue overlying. It appeared to be
rolled up and not expanding. The previous pexy was taken down using a 60 mm green load stapler. I then continued dissecting the right middle lobe in an attempt to unfurl it and performed a decortication. Test inflation here demonstrated the right
lower lobe to fill almost the entire chest cavity with ease. However the right middle lobe was not expanding. Additional dissection was then performed around the hilum and a decortication in order to free up that lobe further. Follow-up test
inflation with a Valsalva maneuver was unsuccessful and so I opted to take the right middle lobe at its hilum using a single 60 mm green load stapler. This was placed into a small anchor bag and extracted from the chest cavity through the air seal
port. Additional adhesiolysis was then performed of the right lower lobe in order to ensure full expansion. Intercostal nerve block was then performed at the spaces listed above. A chest tube was inserted and secured in place. All surgical sites
were inspected and any bleeding from the suture/staple lines were cauterized. We then watched the lung fully inflate before removing all ports of the chest wall.
Incisions were closed in 3 layers including the fascia, dermal, and epidermis. Additional local anesthesia was injected into all incision sites. The skin wound was cleansed and sealed with Dermabond glue.
All instrument, sponge, and needle counts were confirmed to be correct x 2 at the end of the operation. The patient was transferred to the cardiac intensive care unit extubated in critical but stable condition.
I, Dr. Christopher Sanon, was present, scrubbed for, and performed all critical elements of this procedure.
Christopher Sanon MD, MS
Cardiothoracic Surgeon
[facility]
This operative dictation was created using the [employer] dictation system. Please excuse any grammatical, typographical, or 'sound alike' errors
--- NOTE | 2024-11-20 15:30 | PTCARENOTE ---
Patient received from PACU; AAOx3, drowsy but responds spontaneously to RN and follows commands; Flat and anxious at times; VSS; SR with RBBB on monitor; Friction rub present; +2 radial and DP pulses; Lungs with rhonchi and coarse throughout; Chest
tube connected to -20 cm wall suction - tidaling and +1 to +3 air leak, no crepitus; SpO2 97-100% on 2L NC; DTV; x3 incisions glued and approximated; PIV x2 - #20 RAC and #20 LAC; Right radial A-line - line zeroed and level; See nursing
documentation for further information
[2024-11-20] MEDS: ANCEF 10 IV ×2 (16:04)
[2024-11-20] MEDS: TYLENOL PO (16:05)
[2024-11-20] MEDS: NEURONTIN 100 MG PO ×2 (17:09→21:56)
[2024-11-20] MEDS: FLOVENT 44 MCG INHALER 2 PUFF INH (19:47)
[2024-11-20] MEDS: ANCEF 5 IV (19:58)
--- NOTE | 2024-11-20 20:35 | PTCARENOTE ---
received pt from previous rn. VSS, pt AAOx4, NSR per tele monitor HR 70s, friction rub present, pox 99% on 2L, Lungs with rhonchi and coarse throughout; Chest tube connected to -20 cm wall suction - tidaling and +1 to +3 air leak, no crepitus; pt
voiding in bedside commode, all surgical incisions intact. Right radial A-line - line zeroed and level. PIVx2 intact. plan of care discussed questions encouraged. call louis within reach.
[2024-11-20] MEDS: TYLENOL 1000 MG PO (21:57)
[2024-11-21] VITALS (23 sets, daily range): BP systolic 78–120; BP diastolic 48–72; BMI 19.1
--- NOTE | 2024-11-21 | PTCARENOTE ---
VSS, pt resting comfortably in bed, NSR per tele monitor, assessment remains unchanged.
[2024-11-21 04:12] LABS: Hematocrit 33.2 % (37.0-47.0); Hemoglobin 10.8 g/dL (12.0-16.0); Mean Corp Hgb Conc. 32.5 g/dL (33.0-37.0); Mean Corpuscular Hgb 28.5 pg (27.0-31.0); Mean Corpuscular Volume 87.6 fL (81.0-99.0); Mean Platelet Volume 10.2 fL (7.4-10.4); Platelet Count 310 10^3/uL (130-400); Red Blood Cell Count 3.79 10^6/uL (4.20-5.40); Red Cell Dist. Width 13.5 % (11.5-14.5); White Blood Cell Count 11.9 10^3/uL (4.8-10.8)
[2024-11-21 04:37] LABS: Blood Urea Nitrogen 22 mg/dl (7-17); Carbon Dioxide 22 mmol/L (22-30); Chloride 106 mmol/L (98-107); Estimated Creatinine Clearance 51 ml/min; Glucose 138 mg/dl (70-99); Potassium 4.6 mmol/L (3.5-5.1); Sodium 134 mmol/L (135-145); eGFR > 60.00
[2024-11-21] MEDS: ANCEF 5 IV ×2 (05:05→12:53)
[2024-11-21] MEDS: TYLENOL 1000 MG PO ×3 (05:05→21:41)
--- NOTE | 2024-11-21 05:18 | W.PN.CT ---
Today's Communication / Plan
-
-pod #1
-no issues overnight
-no complaints, no SOB. pOx 99% on 2L
-R CT on -20 sxn, +1 intermittent air leak, put out 230/435 serosang. in 12/24 hrs
-follow daily CXR
-encourage IS, OOB
Assessment / Plan
-
- Right middle lobe torsion- s/p Robotic assisted thoracic surgery [RATS]; Right middle lobectomy; Adhesiolysis and decortication of both the right upper and right middle lobes
by Dr. Sanon on 11/20/24, pod #1
- History of right upper lobe lung cancer- status post resection and lymph node dissection on 08/21/24
- Increasing shortness of breath approximately 2 weeks after surgery and was found to have atelectasis of the medial portion of the right middle lobe concerning for torsion
- CLAUDIA
- Osteoporosis
- Multiple myeloma
Discussed patient care with: Nursing and Care Team
Subjective
-
Date of Service: November 21, 2024
Objective Data
-
Lab Results
11/21/24 03:50
11/21/24 03:50
PT 13.5 Sec (11.4-14.6) 11/05/24 08:41
INR 1.00 11/05/24 08:41
APTT 30.0 Sec (23.4-35.0) 11/05/24 08:41
Vital Signs
Vital Signs
Temp Pulse Resp BP Pulse Ox
98.3 F 62 16 93/62 99
11/21/24 04:00 11/21/24 05:15 11/21/24 05:15 11/21/24 05:00 11/21/24 05:15
CT Intake/Output/Weight
11/20/24 11/20/24 11/21/24
06:59 18:59 06:59
Intake Total 100 / 100
Output Total 205 / 735 530 / 735
Balance -105 / -635 -530 / -635
SaO2: 99
Physical Exam
-
General: Awake and AOx3
Cardiovascular: Regular rate & rhythm, No Murmurs and No Rub
Respiratory: Decreased Breath Sounds
Incision: Clean, Dry and Dressing Intact
Extremities: No Edema
Abdomen: soft,nontender, nondistended, + bowel sounds
Data Reviewed
-
Lab Results: Results Reviewed
Medications: Active Meds Reviewed
Chest X-Ray: Report Reviewed and Image Reviewed
ECG: Report Reviewed and Image Reviewed
[2024-11-21] MEDS: FLEXERIL 5 MG PO ×2 (07:01→19:46)
[2024-11-21] MEDS: FLOVENT 44 MCG INHALER 2 PUFF INH ×2 (07:55→20:20)
[2024-11-21] MEDS: LOPRESSOR PO (08:00)
--- NOTE | 2024-11-21 08:00 | PTCARENOTE ---
pt received from previous RN, oriented, OOB in chair. SR on the monitor, HR 60-70s. SBP 90s. palpable pulses, no edema. pt on RA, 96% POX. lungs coarse. moist CAR MANAGER cough. IS encouraged. CT x1, +Air leak +1 to +5 at times, +crepitus. +tidaling. CAR MANAGER
Katty aware. pt abdomen s/n, denies n/v. diet tolerated. surgical incisions SPECIMEN ACCESSIONER, approximated. R CT dressing intact. PIV x2. see worklist for VS, I&O, and assessment.
[2024-11-21] MEDS: NEURONTIN 100 MG PO ×3 (08:07→21:41)
[2024-11-21] MEDS: SENOKOT 8.6 MG PO ×2 (08:07→19:46)
[2024-11-21] MEDS: ROXICODONE 2.5 MG PO (08:07)
[2024-11-21] MEDS: MIRALAX 17 GRAMS PO (08:08)
[2024-11-21] MEDS: LIDOCAINE 4% PATCH 1 PATCH TOPICAL (08:08)
[2024-11-21] MEDS: LR 250 IV (10:35)
--- NOTE | 2024-11-21 11:30 | PTCARENOTE ---
pt c/o R back pain, received PRN Roxicodone 2.5mg PO w/ decrease in pain. SBP 80s, c/o mild lightheadedness, placed back to bed. SUPERVISOR LOADING Katty aware. LR bolus ordered and given as ordered. pt c/o double vision 'infrequently', SUPERVISOR LOADING aware.
--- NOTE | 2024-11-21 15:00 | PTCARENOTE ---
~1500: Handoff report received from Mikala CARLISLE. Pt AOx4, NSR BBB on tele, RA satting >90%, LLL course and R lung course, IS encouraged and repeat education provided. Patient states pain is manageable at 1/10 but does not want anything for pain at
this time. Per report, pt c/o double vision earlier, but is not complaining of that at this time. Incisions (under R breast, R lateral and r back incision) PRESLEY with surgical glue. CT dressing CDI at this time. CT putting out serous drainage, I/Os
charted. CT remains -10sx, crepitus noted with tidaling and airleak that varies from +1 to +3 at this time, providers aware. All needs met at this time, call louis within reach.
--- NOTE | 2024-11-21 15:13 | PTCARENOTE ---
pt VSS, placed pt on WS @~1225, POX 89% placed on 2LNC, SYSTEMS SPEC aware. CXR completed, SYSTEMS SPEC aware of results. pt placed on -10cm suction as ordered, 95% POX on RA. ambulated to bathroom, voided.
--- NOTE | 2024-11-21 15:21 | CM ---
Reviewed chart. Met with Ms. Bloom to review discharge plans. She states she is feeling okay. She states prior to admission she resides in a second floor apartment. The building has an elevator but she has been using the stairs. She states prior
to admission she was independent with ambulation and adls. She has a prescription plan. Medical work-up in progress. The discharge plan is to return home with a home visit by the Transitional Care Nurse when medically stable.
[2024-11-21] MEDS: ULTRAM 50 MG PO (18:45)
--- NOTE | 2024-11-21 19:03 | PTCARENOTE ---
Patient in room, VSS at this time. CHG wipe bath done and new gown on. Chest tube dressing changed. Pt c/o pain, PRN ultram given. All needs met at this time, call louis within reach.
[2024-11-21] MEDS: LOPRESSOR 12.5 MG PO (19:46)
[2024-11-22] VITALS (9 sets, daily range): BP systolic 93–136; BP diastolic 56–80; BMI 19.4
[2024-11-22] MEDS: FLEXERIL 5 MG PO ×2 (04:27→16:54)
[2024-11-22] MEDS: TYLENOL 1000 MG PO ×3 (04:27→22:16)
--- NOTE | 2024-11-22 06:05 | PTCARENOTE ---
Per MD, after reviewing CXR, increase chest tube to -20 cm of suction, will continue to monitor. Repeat CXR @ 0800
[2024-11-22] MEDS: TORADOL 15 MG IV ×3 (07:03→19:43)
--- NOTE | 2024-11-22 07:42 | W.PN.CT ---
Today's Communication / Plan
-
-pod #2
-no issues overnight
-R CT was on -10 sxn overnight, air leak noted only with cough, no air leak with breathing.
-CXR this am with small R apical PTX; therefore, increased CT suction to -20 at 6 am and will re-check CXR at 8 am (ordered)
-encourage IS, OOB
Assessment / Plan
-
- Right middle lobe torsion- s/p Robotic assisted thoracic surgery [RATS]; Right middle lobectomy; Adhesiolysis and decortication of both the right upper and right middle lobes
by Dr. Sanon on 11/20/24, pod #2
- History of right upper lobe lung cancer- status post resection and lymph node dissection on 08/21/24
- Increasing shortness of breath approximately 2 weeks after surgery and was found to have atelectasis of the medial portion of the right middle lobe concerning for torsion
- CLAUDIA
- Osteoporosis
- Multiple myeloma
Discussed patient care with: Nursing and Care Team
Subjective
-
Date of Service: November 22, 2024
Objective Data
-
Lab Results
11/21/24 03:50
11/21/24 03:50
PT 13.5 Sec (11.4-14.6) 11/05/24 08:41
INR 1.00 11/05/24 08:41
APTT 30.0 Sec (23.4-35.0) 11/05/24 08:41
Vital Signs
Vital Signs
Temp Pulse Resp BP Pulse Ox
98 F 72 16 105/64 95
11/22/24 03:32 11/22/24 07:30 11/21/24 20:25 11/22/24 04:00 11/22/24 03:32
CT Intake/Output/Weight
11/21/24 11/22/24 11/22/24
18:59 06:59 18:59
Intake Total 350 / 350
Output Total 310 / 395 85 / 395
Balance 40 / -45 -85 / -45
SaO2: 95
Physical Exam
-
General: Awake and AOx3
Cardiovascular: Regular rate & rhythm, No Murmurs and No Rub
Respiratory: Decreased Breath Sounds
Incision: Clean, Dry and Dressing Intact (+ crepitus d/t subcut emphysema)
Extremities: No Edema
Abdomen: soft, nontender, + bowel sounds
Data Reviewed
-
Lab Results: Results Reviewed
Medications: Active Meds Reviewed
Chest X-Ray: Report Reviewed and Image Reviewed
ECG: Report Reviewed and Image Reviewed
[2024-11-22] MEDS: FLOVENT 44 MCG INHALER 2 PUFF INH ×2 (07:45→17:37)
[2024-11-22] MEDS: LOPRESSOR PO (08:00)
--- NOTE | 2024-11-22 08:00 | PTCARENOTE ---
Addendum entered by Mikala Paulino RN 11/22/24 11:03:
CXR completed on -20cm suction.
Original Note:
pt received from previous RN, oriented, OOB in chair. SR on the monitor, HR 60-70s. SBP 90s. palpable pulses, no edema. pt on RA, 96% POX. moist MECHANICAL PROJECT MANAGER cough. IS encouraged. CT x1, +1 Air leak, +crepitus. +tidaling. MECHANICAL PROJECT MANAGER Katty aware. pt abdomen s/n,
denies n/v. diet tolerated. surgical incisions INSTRUMENT MECHANIC WEAPONS SYSTEM, approximated. R CT dressing intact. PIV x2. see worklist for VS, I&O, and assessment.
[2024-11-22] MEDS: NEURONTIN 100 MG PO ×3 (09:20→22:16)
[2024-11-22] MEDS: SENOKOT 8.6 MG PO ×2 (09:21→19:35)
[2024-11-22] MEDS: ULTRAM 50 MG PO ×3 (09:21→22:18)
[2024-11-22] MEDS: LIDOCAINE 4% PATCH 1 PATCH TOPICAL (09:21)
[2024-11-22] MEDS: MIRALAX 17 GRAMS PO (09:21)
--- NOTE | 2024-11-22 12:00 | PTCARENOTE ---
pt VSS, no changes in assessment. pt c/o pain, received PRN Ultram w/ decrease in pain. ambulates to bathroom, voids. oral hygiene performed.
--- NOTE | 2024-11-22 15:39 | PTCARENOTE ---
pt VSS, received PRN Ultram for pain. ambulates to bathroom w/ stand by to void. +flatus.
--- NOTE | 2024-11-22 16:18 | CM ---
Reviewed chart. Met with Ms. Bloom to review discharge plans.. She states she is not feeling well today. Prior to admission she resides alone in a second floor apartment with an elevator. Prior to admission she was using the stairs. Prior to
admission she was independent with ambulation and adls. She does not have any DME in the home. She has a prescription plan. We reviewed a home visit by the Transitional Care Nurse. She is agreeable to a home visit. Medical work-up in progress.
The discharge plan is to return home with a home visit by the Transitional Care Nurse when medically stable.
[2024-11-22] MEDS: ROXICODONE 2.5 MG PO (17:57)
--- NOTE | 2024-11-22 18:31 | PTCARENOTE ---
pt c/o R upper back pain, received PRN Flexeril and Roxicodone 2.5mg PO.
[2024-11-22] MEDS: LOPRESSOR 12.5 MG PO (19:35)
--- NOTE | 2024-11-22 20:00 | PTCARENOTE ---
[facility]. pt resting in bed, states pain is 9/10, see MAR. pt is AAOx4. NSR with BBB on monitor. VSS. heart sounds audible, radial and DP pulses palpable. lung sounds clear, diminished at b/l bases, spo2 96% on RA, right lateral
pleural CT to -20 wall suction, intermediate +1 air leak, tidaling present, crepitus noted on pt's right side of back. +BS x4 quadrants, abdomen soft, non tender. pt voiding clear yellow urine. surgical site maintained, CT dressing changed. PIV
maintained. call louis within reach. will continue to monitor.
[2024-11-23] VITALS (7 sets, daily range): BP systolic 114–139; BP diastolic 69–78; BMI 19.9
--- NOTE | 2024-11-23 | PTCARENOTE ---
Pt's assessment unchanged. NSR with BBB on monitor. VSS. pt resting comfortably in bed. will continue to monitor.
--- NOTE | 2024-11-23 03:22 | W.PN.CT ---
Addendum entered and electronically signed by Kris Coffman MD 11/23/24 09:35:
I saw and examined the patient.
The PA's note was reviewed and I agree with the note.
Comment:
Doing well.� No air leak.� Maintain CT to -10cm suction today, water seal attempt at MN tonight.� OOB/IS/ambulation
Original Note:
Today's Communication / Plan
-
-No major issues overnight. Hemodynamically and neurologically intact
-Increase PTX when transitioned to water seal yesterday
-Chest tube placed back on -20 cmh20 wall suction. No air leak noted, drained 45/145 (serous)
-I cannot appreciate a ptx on cxr this AM, f/u official report
-Will discuss decrease suction to -10 cm h2o wall suction vs water seal again
-Avoid NSAIDS/Steroids to help facilitated adherence/inflammation (will d/c Toradol and place Fluticasone Propionate on hold)
-OOB into chair
-Ambulate
Assessment / Plan
-
- Right middle lobe torsion- s/p Robotic assisted thoracic surgery [RATS]; Right middle lobectomy; Adhesiolysis and decortication of both the right upper and right middle lobes
by Dr. Sanon on 11/20/24, pod #3
- History of right upper lobe lung cancer- status post resection and lymph node dissection on 08/21/24
- Increasing shortness of breath approximately 2 weeks after surgery and was found to have atelectasis of the medial portion of the right middle lobe concerning for torsion
- CLAUDIA
- Osteoporosis
- Multiple myeloma
Discussed patient care with: Nursing, Respiratory Therapy, Pharmacy and Care Team
Subjective
-
Date of Service: November 23, 2024
Pt c/o mild incisional pain, otherwise feels well
Objective Data
-
Lab Results
11/21/24 03:50
11/21/24 03:50
PT 13.5 Sec (11.4-14.6) 11/05/24 08:41
INR 1.00 11/05/24 08:41
APTT 30.0 Sec (23.4-35.0) 11/05/24 08:41
Vital Signs
Vital Signs
Temp Pulse Resp BP Pulse Ox
98.8 F 79 16 129/70 96
11/23/24 00:00 11/22/24 19:30 11/23/24 00:00 11/22/24 19:25 11/23/24 00:00
CT Intake/Output/Weight
11/22/24 11/22/24 11/23/24
06:59 18:59 06:59
Intake Total 580 / 580
Output Total 85 / 395 100 / 145 45 / 145
Balance -85 / -45 480 / 435 -45 / 435
SaO2: 96 (RA)
Physical Exam
-
General: Awake, Oriented and AOx3
Cardiovascular: Regular rate & rhythm, No Murmurs, No Rub and No Gallop
Respiratory: Decreased Breath Sounds (on right, otherwise clear)
Incision: Clean, Dry, Intact and Dressing Intact
Extremities: No Edema
Data Reviewed
-
Lab Results: Results Reviewed
Medications: Active Meds Reviewed
Chest X-Ray: Report Reviewed and Image Reviewed
CT Scan: Report Reviewed and Image Reviewed
[2024-11-23] MEDS: ROXICODONE 2.5 MG PO ×3 (03:39→18:49)
--- NOTE | 2024-11-23 04:00 | PTCARENOTE ---
Pt assessment unchanged. NSR. VSS. call louis in reach.
[2024-11-23] MEDS: TYLENOL 1000 MG PO ×3 (04:41→21:37)
[2024-11-23] MEDS: TORADOL 15 MG IV (04:42)
[2024-11-23] MEDS: LIDOCAINE 4% PATCH 1 PATCH TOPICAL (08:15)
[2024-11-23] MEDS: LOPRESSOR 12.5 MG PO ×2 (08:16→19:49)
[2024-11-23] MEDS: MIRALAX 17 GRAMS PO (08:16)
[2024-11-23] MEDS: NEURONTIN 100 MG PO ×3 (08:16→21:37)
[2024-11-23] MEDS: SENOKOT 8.6 MG PO ×2 (08:16→19:49)
[2024-11-23] MEDS: ULTRAM 50 MG PO ×2 (08:26→16:58)
--- NOTE | 2024-11-23 08:30 | PTCARENOTE ---
Assumed care of patient at 0700. Pt is awake, alert, and oriented. Pt with complaints of right upper back and side pain, PRN Tramadol administered. Pt remains SR with BBB, HR 77. BP 119/75 MAP 87. Pulse oximetry 98% on room air. Right lateral chest
tube in place, now to -10 suction per order, no sign of air leak. Pt tolerating PO diet. Voiding without difficulty. Right lateral incisions approximated with surgical adhesive. Pt currently resting in bed with call louis within reach.
[2024-11-23] MEDS: FLEXERIL 5 MG PO ×2 (11:22→19:58)
--- NOTE | 2024-11-23 11:30 | PTCARENOTE ---
Pt with continued complaints of pain, PRN pain medications administered. Pt remains SR with BBB, HR 66. BP 124/69 MAP 85. Pulse oximetry 98% on room air.
--- NOTE | 2024-11-23 13:45 | PTCARENOTE ---
Pt ambulated to bathroom, pt became SOB trying to cough up mucus. Pt assisted to bed. Remains SR with HR 80. BP 139/78 MAP 96. Pulse oximetry 98% on room air, placed on 2L for comfort. CT JOSE Kay made aware. X-ray obtained at bedside. Right
lateral chest tube remains on -10 suction at this time.
[2024-11-23] MEDS: MUCINEX 600 MG PO ×2 (16:58→19:49)
--- NOTE | 2024-11-23 17:11 | PTCARENOTE ---
Pt with continued complaints of pain, PRN pain medications administered. Pt remains SR with HR 68. BP 129/79 MAP 91. Pulse oximetry 100% on 2L nasal cannula.
--- NOTE | 2024-11-23 20:00 | PTCARENOTE ---
Received pt from [facility]. pt resting in bed, states pain is 5/10, see MAR. pt is AAOx4. NSR with BBB on monitor. VSS. heart sounds audible, radial and DP pulses palpable. lung sounds clear, diminished at b/l bases, spo2 97% on RA, right lateral
pleural CT to -10 wall suction, intermediate +1 air leak, tidaling present, no crepitus noted. +BS x4 quadrants, abdomen soft, non tender. pt voiding clear yellow urine. surgical site maintained, CT dressing changed. PIV maintained. call louis within
reach. will continue to monitor.
[2024-11-24] VITALS (7 sets, daily range): BP systolic 115–146; BP diastolic 65–89; BMI 19.8
[2024-11-24] MEDS: ULTRAM 50 MG PO ×3 (00:16→21:08)
--- NOTE | 2024-11-24 00:30 | PTCARENOTE ---
Assumed care of pt at 2300. Report from MAYLIN Contreras. Pt awake, alert, oriented x 4. Speech clear. Equal extremity strength x 4.
R posterior-lateral CT placed to water seal by ISRAEL at ~0010. CXR ordered for am. Room air sat 91-94%. 2L/NC O2 applied. Sats up to 97%. Pt with 6/10 R lateral CP. Ultram 50 mg po given for pain. BBS present. Decreased B bases. Audible heart tones.
Pt in SR. Normotensive. BP 119/65. B radial and DP pulses +2. Belly soft, nontender. Pt had BM 5/24. Normoactive bs x 4. Pt voids clear, yellow urine. She was up ad ar and in BR voiding at midnight. Ongoing plan of care.
--- NOTE | 2024-11-24 03:19 | W.PN.CT ---
Addendum entered and electronically signed by Kris Coffman MD 11/24/24 09:09:
I saw and examined the patient.
The PA's note was reviewed and I agree with the note.
Comment:
H2O seal today
Potential CT out tomorrow w/ possible D/C
Original Note:
Today's Communication / Plan
-
Plan:
-No major issues overnight. Hemodynamically and neurologically intact
-Suction decreased to -10 cmh2o wall suction yesterday and to water seal at midnight, no air leak noted prior to water seal
-Drained 50/110 (serous)
-I cannot appreciate a ptx on cxr this AM, f/u official report
-Will discuss clamping and d/c of chest tube today
-Avoid NSAIDS/Steroids to help facilitated adherence/inflammation (d/c'd Toradol and placed Fluticasone Propionate on hold)
-K 5.3 today, will consider diuresis and repeat
-OOB into chair
-Ambulate
-Home later today vs tomorrow
Assessment / Plan
-
- Right middle lobe torsion- s/p Robotic assisted thoracic surgery [RATS]; Right middle lobectomy; Adhesiolysis and decortication of both the right upper and right middle lobes
by Dr. Sanon on 11/20/24, pod #4
- History of right upper lobe lung cancer- status post resection and lymph node dissection on 08/21/24
- Increasing shortness of breath approximately 2 weeks after surgery and was found to have atelectasis of the medial portion of the right middle lobe concerning for torsion
- CLAUDIA
- Osteoporosis
- Multiple myeloma
Discussed patient care with: Nursing, Respiratory Therapy, Pharmacy and Care Team
Subjective
-
Date of Service: November 24, 2024
c/o mild incisional pain, otherwise feels well
Objective Data
-
PT 13.5 Sec (11.4-14.6) 11/05/24 08:41
INR 1.00 11/05/24 08:41
APTT 30.0 Sec (23.4-35.0) 11/05/24 08:41
Vital Signs
Vital Signs
Temp Pulse Resp BP Pulse Ox
98.5 F 63 15 119/65 97
11/24/24 00:10 11/24/24 00:10 11/24/24 00:10 11/24/24 00:10 11/24/24 02:49
CT Intake/Output/Weight
11/23/24 11/23/24 11/24/24
06:59 18:59 06:59
Output Total 45 / 145 60 / 60
Balance -45 / 435 -60 / -60
SaO2: 97 (RA)
Physical Exam
-
General: Awake, Oriented and AOx3
Cardiovascular: Regular rate & rhythm, No Murmurs, No Rub and No Gallop
Respiratory: Decreased Breath Sounds (on right, otherwise clear)
Incision: Clean, Dry, Intact and Dressing Intact
Extremities: No Edema
Data Reviewed
-
Lab Results: Results Reviewed
Medications: Active Meds Reviewed
Chest X-Ray: Report Reviewed and Image Reviewed
ECG: Report Reviewed and Image Reviewed
[2024-11-24] MEDS: FLEXERIL 5 MG PO ×3 (04:51→22:01)
[2024-11-24] MEDS: TYLENOL 1000 MG PO ×3 (04:51→22:01)
--- NOTE | 2024-11-24 05:00 | PTCARENOTE ---
Pt helped to BR to void clear, yellow urine. Pt weighed on standing scale. Helped back to bed. Labs drawn and sent. Pt with 7 R lat CP. Refuses narcotic at this time. Flexeril 5 mg and Tylenol 1000 mg given early. CXR done by Radiology. Pt with
01/09 pain after XR. Tearful. Dilaudid 0.25 mg IV given at 0529 (pt willing to take narcotic now).
[2024-11-24 05:29] LABS: Hematocrit 34.1 % (37.0-47.0); Hemoglobin 10.7 g/dL (12.0-16.0); Mean Corp Hgb Conc. 31.4 g/dL (33.0-37.0); Mean Corpuscular Hgb 28.5 pg (27.0-31.0); Mean Corpuscular Volume 90.7 fL (81.0-99.0); Mean Platelet Volume 9.8 fL (7.4-10.4); Platelet Count 269 10^3/uL (130-400); Red Blood Cell Count 3.76 10^6/uL (4.20-5.40); Red Cell Dist. Width 13.7 % (11.5-14.5); White Blood Cell Count 5.9 10^3/uL (4.8-10.8)
[2024-11-24] MEDS: DILAUDID 0.25 MG IV (05:29)
[2024-11-24 06:01] LABS: Blood Urea Nitrogen 26 mg/dl (7-17); Calcium 9.2 mg/dl (8.4-10.2); Carbon Dioxide 31 mmol/L (22-30); Chloride 104 mmol/L (98-107); Estimated Creatinine Clearance 52 ml/min; Glucose 92 mg/dl (70-99); Potassium 5.3 mmol/L (3.5-5.1); Sodium 137 mmol/L (135-145); eGFR > 60.00
--- NOTE | 2024-11-24 07:00 | PTCARENOTE ---
Pt called to MAYLIN. C/O continued 01/09 R lat CP. Roxicodone 2.5 mg po given . Report to MAYLIN Hess. Walking rounds done.
[2024-11-24] MEDS: ROXICODONE 2.5 MG PO ×2 (07:04→12:21)
--- NOTE | 2024-11-24 08:50 | PTCARENOTE ---
Assumed care of patient at 0700. Pt is awake, alert, and oriented. Pt with continued complaints of pain, PRN pain medication administered. Pt remains SR with BBB, HR 68. BP 115/67 MAP 79. Pulse oximetry 98% on room air. Right lateral chest tube in
place to water seal, no sign of air leak or crepitus. Pt tolerating PO diet. Voiding without issue. Right lateral incisions approximated with surgical adhesive. Pt resting in bed with call louis within reach.
[2024-11-24] MEDS: LOPRESSOR 12.5 MG PO ×2 (08:57→21:07)
[2024-11-24] MEDS: MUCINEX 600 MG PO ×2 (08:57→21:08)
[2024-11-24] MEDS: MIRALAX 17 GRAMS PO (08:57)
[2024-11-24] MEDS: NEURONTIN 100 MG PO ×3 (08:57→22:01)
[2024-11-24] MEDS: LIDOCAINE 4% PATCH 1 PATCH TOPICAL (08:57)
[2024-11-24] MEDS: SENOKOT 8.6 MG PO ×2 (08:57→21:08)
--- NOTE | 2024-11-24 12:30 | PTCARENOTE ---
No changes to assessment. Remains SR with BBB, HR 64. BP 118/74 MAP 86. Pulse oximetry 93% on room air. Right lateral chest tube dressing changed. No sign of air leak or crepitus. Remains to water seal. Pt ambulated in hallway with RN without issue.
--- NOTE | 2024-11-24 16:30 | PTCARENOTE ---
Pt ambulated in keith with RN, tolerated well. Pt remains SR with BBB, HR 67. BP 132/71 MAP 87. Pulse oximetry 94% on room air. Chest tube remains unchanged, remains to water seal.
--- NOTE | 2024-11-24 21:05 | PTCARENOTE ---
Report received from MAYLIN Hess. Walking rounds done. Pt assessed. VS done. See flowsheet. Pt awake, alert, oriented x 4. Speech clear. Equal extremity strength x 4. On room air. Sats 94%. Moist, nonproductive cough. Mucinex given- scheduled. R
post-lateral CT to water seal. No air leak, no crepitus palpated. Audible heart tones. Pt in SR with BBB. Normotensive. Four pulse and wound assessments, see flowsheets. Belly, soft, nontender. Normoactive bs x 4. Had BM today. Passing flatus. Voids
clear, yellow urine in toilet.
Ultram 50 mg po given for moderate c/o R post-lateral CP. Labs drawn to check potassium level per order of PA. Ongoing plan of care.
[2024-11-24 21:47] LABS: Potassium 4.4 mmol/L (3.5-5.1)
--- NOTE | 2024-11-24 22:30 | PTCARENOTE ---
Pt helped to BR to void, then helped back to bed. Refused CHG bath for evening. Flexeril 5 mg po given for moderate c/o R post-lateral CP.PA in to see pt. VS done. Pt going to sleep for evening.
--- NOTE | 2024-11-25 02:30 | PTCARENOTE ---
Pt sleeping. Remains in SR. Rate 60's.
--- NOTE | 2024-11-25 03:21 | W.PN.CT ---
Addendum entered and electronically signed by Kris Coffman MD 11/25/24 09:16:
I saw and examined the patient.
The PA's note was reviewed and I agree with the note.
Comment:
CXR w/o PTX on waterseal
CT clamped at 7:50AM
Check CXR at 10:00AM - if OK, D/C CT
Potential D/C home later today vs tomorrow
Original Note:
Today's Communication / Plan
-
Plan:
-No major issues overnight. Hemodynamically and neurologically intact
-Chest tube on water seal since midnight 11/24, no air leak
-Drained (serous)
-I cannot appreciate a ptx on cxr this AM, f/u official report
-Will discuss clamping and d/c of chest tube today
-Avoid NSAIDS/Steroids to help facilitated adherence/inflammation (d/c'd Toradol and placed Fluticasone Propionate on hold)
-OOB into chair
-Ambulate
-Home later today vs tomorrow (wants to stay another day)
Assessment / Plan
-
- Right middle lobe torsion- s/p Robotic assisted thoracic surgery [RATS]; Right middle lobectomy; Adhesiolysis and decortication of both the right upper and right middle lobes
by Dr. Sanon on 11/20/24, pod #5
- History of right upper lobe lung cancer- status post resection and lymph node dissection on 08/21/24
- Increasing shortness of breath approximately 2 weeks after surgery and was found to have atelectasis of the medial portion of the right middle lobe concerning for torsion
- CLAUDIA
- Osteoporosis
- Multiple myeloma
Discussed patient care with: Nursing, Respiratory Therapy, Pharmacy and Care Team
Subjective
-
Date of Service: November 25, 2024
Pt c/o mild incisional pain, otherwise feels well
Objective Data
-
Lab Results
11/24/24 05:21
11/24/24 21:23
PT 13.5 Sec (11.4-14.6) 11/05/24 08:41
INR 1.00 11/05/24 08:41
APTT 30.0 Sec (23.4-35.0) 11/05/24 08:41
Vital Signs
Vital Signs
Temp Pulse Resp BP Pulse Ox
98.8 F 78 16 146/89 94
11/24/24 22:17 11/24/24 22:17 11/24/24 22:17 11/24/24 22:17 11/25/24 00:21
CT Intake/Output/Weight
11/24/24 11/24/24 11/25/24
06:59 18:59 06:59
Output Total 50 / 110
Balance -50 / -110 -
SaO2: 94 (RA)
Physical Exam
-
General: Awake, Oriented and AOx3
Cardiovascular: Regular rate & rhythm, No Rub and No Gallop
Respiratory: Decreased Breath Sounds (on right, otherwise clear)
Incision: Clean, Dry, Intact and Dressing Intact
Extremities: No Edema
Data Reviewed
-
Lab Results: Results Reviewed
Medications: Active Meds Reviewed
Chest X-Ray: Report Reviewed and Image Reviewed
ECG: Report Reviewed and Image Reviewed
[2024-11-25 04:04] VITALS: BP 117/78
[2024-11-25] MEDS: ROXICODONE 2.5 MG PO (04:24)
--- NOTE | 2024-11-25 04:29 | PTCARENOTE ---
Pt awake. VS done. Pt helped to BR to void clear, yellow urine. Weighed on standing scale. Helped back to bed. C/O 6-01/09 R post-lat CP. Roxicodone 2.5 mg po given for pain. Attempting to go to back to sleep.
[2024-11-25 04:32] VITALS: BMI 19.9
[2024-11-25] MEDS: TYLENOL 1000 MG PO ×3 (06:32→22:40)
[2024-11-25] MEDS: ULTRAM 50 MG PO (06:33)
[2024-11-25 06:45] VITALS: BMI 19.9
--- NOTE | 2024-11-25 08:00 | PTCARENOTE ---
Resumed care of patient from previous RN. Walking rounds done. Pt in bed at time of assessment. VSS. NSR with BBB. HR 60-70s. 95% on RA. R lateral CT to water seal. clamped this am by STOCK SELECTOR. + bs. BRP. lidocaine patch reapplied to back. no additional
pain medication requested at this time. will continue to monitor.
[2024-11-25 09:36] VITALS: BP 126/78
[2024-11-25] MEDS: LOPRESSOR 12.5 MG PO ×2 (09:39→20:09)
[2024-11-25] MEDS: MUCINEX 600 MG PO ×2 (09:39→20:09)
[2024-11-25] MEDS: MIRALAX 17 GRAMS PO (09:39)
[2024-11-25] MEDS: NEURONTIN 100 MG PO ×3 (09:39→22:40)
[2024-11-25] MEDS: SENOKOT 8.6 MG PO ×2 (09:40→20:08)
[2024-11-25] MEDS: LIDOCAINE 4% PATCH 1 PATCH TOPICAL (09:40)
[2024-11-25 12:30] VITALS: BP 127/78
--- NOTE | 2024-11-25 14:00 | PTCARENOTE ---
d/c chest tube with Kay SLIP COVER SEAMSTRESS. order for repeat CXR to be done 1600.
[2024-11-25 16:29] VITALS: BP 136/83
--- NOTE | 2024-11-25 20:00 | PTCARENOTE ---
Assumed care of patient at 1900. Patient found resting in bed at time of assessment. Patient is AOx4, follows commands appropriately, moves all extremities. Lung sounds are clear and equal bilaterally. Heart sounds have a regular rate and rhythm,
patient is in SR with BBB on the monitor, normal palpable pulses and no observable edema. Patient has active BS in all four quadrants reports +BM and voids independently in bathroom. Patient has 3xincision to the R lateral chest that are approx with
surg adhesive and PRESLEY. Patient has a R lateral chest tube wound with 4x4 dressing some serosanguineous drainage noted. Patient has R AC PIV available for intermittent infusion. VSS. Call louis within reach.
[2024-11-25 20:05] VITALS: BP 117/82
[2024-11-25 22:43] VITALS: BP 129/82
--- NOTE | 2024-11-26 01:53 | PTCARENOTE ---
Patient reassessed. VSS. Remains SR with BBB on the monitor. Pain managed with scheduled medications. Call louis within reach.
--- NOTE | 2024-11-26 04:37 | W.PN.CT ---
Today's Communication / Plan
-
Plan:
-No major issues overnight. Hemodynamically and neurologically intact
-Chest tube clamped and d/c'd without incident yesterday 11/25
-No pneumothorax noted following chest tube removal
-For 2-view cxr today
-Avoid NSAIDS/Steroids to help facilitated adherence/inflammation (d/c'd Toradol and placed Fluticasone Propionate on hold)
-OOB into chair
-Ambulate
-Home today
Assessment / Plan
-
- Right middle lobe torsion- s/p Robotic assisted thoracic surgery [RATS]; Right middle lobectomy; Adhesiolysis and decortication of both the right upper and right middle lobes
by Dr. Sanon on 11/20/24, pod #6
- History of right upper lobe lung cancer- status post resection and lymph node dissection on 08/21/24
- Increasing shortness of breath approximately 2 weeks after surgery and was found to have atelectasis of the medial portion of the right middle lobe concerning for torsion
- CLAUDIA
- Osteoporosis
- Multiple myeloma
Discussed patient care with: Nursing, Respiratory Therapy, Pharmacy and Care Team
Subjective
-
Date of Service: November 26, 2024
c/o mild incisional pain, much improved following removal of chest tube yesterday
Objective Data
-
Lab Results
11/24/24 05:21
11/24/24 21:23
PT 13.5 Sec (11.4-14.6) 11/05/24 08:41
INR 1.00 11/05/24 08:41
APTT 30.0 Sec (23.4-35.0) 11/05/24 08:41
Vital Signs
Vital Signs
Temp Pulse Resp BP Pulse Ox
98.1 F 72 20 129/82 94
11/25/24 23:19 11/25/24 23:00 11/25/24 23:19 11/25/24 22:43 11/25/24 23:19
CT Intake/Output/Weight
11/25/24 11/25/24 11/26/24
06:59 18:59 06:59
Intake Total 250 / 250 480 / 480
Output Total /
Balance 240 / 215 470 / 470
SaO2: 94 (RA)
Physical Exam
-
General: Awake, Oriented and AOx3
Cardiovascular: Regular rate & rhythm, No Murmurs, No Rub and No Gallop
Respiratory: Clear
Incision: Clean, Dry and Intact
Extremities: No Edema
Data Reviewed
-
Lab Results: Results Reviewed
Medications: Active Meds Reviewed
Chest X-Ray: Report Reviewed and Image Reviewed
ECG: Report Reviewed and Image Reviewed
[2024-11-26 04:54] VITALS: BP 140/76
[2024-11-26 04:55] VITALS: BP 126/65
[2024-11-26 06:00] VITALS: BMI 19.7
[2024-11-26] MEDS: TYLENOL 1000 MG PO (07:26)
--- NOTE | 2024-11-26 07:38 | PTCARENOTE ---
Patient reassessed. VSS. Remains SR with BBB on monitor. No c/o pain. Call louis within reach
--- NOTE | 2024-11-26 08:00 | PTCARENOTE ---
pt received from previous RN, oriented. SR w/ BBB on the monitor, HR 60-70s. palpable pulses, no edema. pt on RA, 97% POX. lungs clear, IS encouraged. pt abdomen s/n, denies n/v. +BS, +BM overnight per pt. voids. pt ambulates independently,
ambulated in hallway w/ stand by assist. tolerated. surgical sites c/d/i. chest tube site c/d/i. PIV. see worklist for VS, I&O, and assessment.
[2024-11-26 08:07] VITALS: BP 125/80
[2024-11-26] MEDS: NEURONTIN 100 MG PO (08:39)
[2024-11-26] MEDS: LOPRESSOR 12.5 MG PO (08:39)
[2024-11-26] MEDS: SENOKOT PO (08:39)
[2024-11-26] MEDS: MIRALAX PO (08:39)
[2024-11-26] MEDS: MUCINEX 600 MG PO (08:40)
[2024-11-26] MEDS: LIDOCAINE 4% PATCH 1 PATCH TOPICAL (08:40)
--- NOTE | 2024-11-26 10:25 | W.DCSUMMARY ---
Addendum entered and electronically signed by GERONIMO Beck 11/26/24 13:23:
please remove line 'Patient's chest tube insertion site was not tied down. '
Original Note:
Discharge Summary
Discharge Data
Date of Admission: 11/20/24
Date of Discharge: 11/26/24
Total time spent discharging patient (in min): 35
-
Pending Results: No
Hospital Course
Primary care physician:
Dr. Cox
Outpatient mobile ui designer:
Dr. Miguel
Inpatient consultants:
None
Procedures:
1. Robotic assisted thoracic surgery [RATS]; Right middle lobectomy; Adhesiolysis and decortication of both the right upper and right middle lobes
by Dr. Sanon on 11/20/24
Primary Diagnosis:
1. Right middle lobe torsion
Secondary Diagnoses:
1. CLAUDIA
2. Osteoporosis
3. Multiple myeloma
HPI: 74-year-old female who underwent robotic assisted thoracic surgery to form of a right upper lobectomy with lymph node dissection on 08/21/2024 for right upper lobe primary lung cancer. She was doing well postoperatively left the hospital on
postop day #2 without complications. Approximately 2 weeks after that she developed shortness of breath with activity. This was persistent and did not improve with pulmonary optimization. She underwent a bronchoscopy as well as a CT scan of the
chest that was concerning for right middle lobe torsion. Given the findings, she was counseled about reoperative surgery and the need for reduction of the right middle lobe however there is a possibility for need of a right middle lobectomy. She
opted to move forward with surgery and presented electively on 11/[address] Sanon.
Hospital course: Patient was electively admitted on 11/20 for a lobectomy with Dr. Sanon. Postoperatively she returned to PACU for recovery and then transferred to CVICU for the remainder of her recovery. Patient's left pleural chest tube had a +1
airleak and remained on suction. Patient was declined later in the afternoon. On 11/21 postoperative day 1 patient was trialed on waterseal however repeat imaging showed a small pneumothorax and subcu air that was unchanged so she was placed back
on -20 of suction. On 11/22 postoperative day 2 morning chest x-ray did not show a pneumothorax but suction remained at -20. On 11/23 postoperative day 3 patient's morning chest x-ray did not show a pneumothorax and suction was decreased to -10.
Patient was started on Mucinex for nonproductive cough. On 11/24 postoperative day 4 chest x-ray remained stable and patient was placed on waterseal. Repeat chest x-ray did not show a pneumothorax so she remained on waterseal. On 11/25
postoperative day 5 patient's chest tube was clamped and chest x-ray did not show pneumothorax. Therefore later in the afternoon chest tube was removed. Patient's chest tube insertion site was not tied down. Follow-up chest x-ray did not show
pneumothorax. On 11/26 postoperative day 6, two-view chest x-ray did not show a pneumothorax. Patient ambulated without issue and she was deemed stable for discharge home.
Home medication changes:
see below
Discharge Plan
-
Patient Disposition: Home (Routine Discharge)
Discharge Diagnosis/Procedures: right middle lobe reduction of torsion
Condition: Good
Diet: No restrictions
Activity: No strenuous activity
Driving Restrictions: No driving for 2 weeks
Bathing Restrictions: OK to Shower
Specialty Instructions: Weigh Daily- Call MD for wt gain/loss 3 lbs overnight/5 lbs in 1 week
Referrals:
CT Transitional Care Nurse [Outside] - in one to two days
(
The Cardiothoracic Transitional Care Nurse will call you to set up a visit in 1-2 days.)
Larry Cox DO [Family Provider] - in four to six weeks (Please make an appointment in four to six weeks.)
Fabienne Bustos CRNP [Specified Professional Personl] - 12/04/24 1:45 pm
Prescriptions:
New
acetaminophen 325 mg Tablet
650 mg PO Q4HPRN PRN (Reason: mild pain,headache,temp >101F ) Qty: 0 0RF
cyclobenzaprine 10 mg Tablet
5 mg PO Q8HPRN PRN (Reason: muscle spasm) Qty: 60 0RF
metoprolol succinate [Toprol XL] 25 mg tablet extended release 24 hr
12.5 mg PO DAILY Qty: 30 0RF
Rx Instructions:
please only continue for 30 days
tramadol 50 mg Tablet
50 mg PO Q6HPRN PRN (Reason: moderate to severe pain) Qty: 10 0RF
gabapentin 100 mg Capsule
100 mg PO TID Qty: 60 0RF
Continued
multivitamin Tablet
1 tab PO DAILY PRN (Reason: when remembers)
Prolia 60 mg/mL Syringe
60 mg SC [id number]
umeclidinium-vilanterol [Anoro Ellipta] 62.5-25 mcg/actuation Blister With Device
1 inh INHALATION DAILY
Arnuity Ellipta 100 mcg/actuation Blister With Device
1 inh INHALATION DAILY
epinephrine 0.3 mg/0.3 mL Auto-Injector
0.3 mg IM Q5-15M PRN (Reason: bee stings)
melatonin 1 mg Tablet
3 mg PO HS PRN (Reason: sleep)
Discontinued
metoprolol succinate 25 mg Capsule,Sprinkle,Er 24hr
12.5 mg PO DAILY
Patient Comments:
Patient not taking according to patient
Discharge Orders:
Discharge Patient (As Directed); Ordered 11/26/24
Ordered By: Eusebia Up
Care Plan Goals
Care Plan Goals:
Problem: Readiness for enhanced knowledge related to diagnosis and treatment plan
Goal: Understand your diagnosis and treatment plan needs, including medications if applicable.
Instructions: Know your diagnosis, underlying causes and treatment plan options, including medications if applicable. Consult with your health care team to learn about your diagnosis and treatment plan, including medications if applicable.
Discharge Date and Time
Print Language: [place]
[2024-11-26 11:43] VITALS: BP 133/78
--- NOTE | 2024-11-26 12:01 | PTCARENOTE ---
pt VSS, no changes in assessment. no c/o pain.
--- NOTE | 2024-11-26 12:57 | PTCARENOTE ---
Addendum entered by Mikala Paulino RN 11/26/24 13:26:
R lat CT suture in place, ISRAEL [place] aware.
Original Note:
pt discharge instructions reviewed w/ patient, home meds reviewed. questions answered. CT dressing removed. surgical sites PRESLEY. tele and IV dc'd. pt showered independently, dressed self. ambulating independently. pt left via wheelchair w/ volunteer
escort w/ all belongings.
--- NOTE | 2024-11-26 13:03 | W.PN.UPDATE ---
Addendum entered and electronically signed by GERONIMO Beck 11/26/24 13:23:
entered under wrong patient. Please delete
Original Note:
Update Note
Progress Note Update
epicardial wires cut at the skin without issue.
== END 2024-11-26 13:00 | disposition home or self-care (01) | DRG 164 ==
LOC: CVICU 07:37
PROVIDERS: Nurse Practitioner; ADMITTING PHYSICIAN Thoracic Surgery (Cardiothoracic Vascular Surgery); FAMILY PHYSICIAN Family Medicine
PROC: 0BND4ZZ Release Right Middle Lung Lobe, Percutaneous Endoscopic Approach (ICD-10-PCS; 2024-11-20)
PROC: 0BNC4ZZ Release Right Upper Lung Lobe, Percutaneous Endoscopic Approach (ICD-10-PCS; 2024-11-20)
PROC: 0BTD4ZZ Resection of Right Middle Lung Lobe, Percutaneous Endoscopic Approach (ICD-10-PCS; 2024-11-20)
PROC: 8E0W4CZ Robotic Assisted Procedure of Trunk Region, Percutaneous Endoscopic Approach (ICD-10-PCS; 2024-11-20)
DX: J98.4 Other disorders of lung (principal); C90.00 Multiple myeloma not having achieved remission; J98.11 Atelectasis; J94.8 Other specified pleural conditions; G47.33 Obstructive sleep apnea (adult) (pediatric); M81.0 Age-related osteoporosis without current pathological fracture; J95.811 Postprocedural pneumothorax; Y83.6 Removal of other organ (partial) (total) as the cause of abnormal reaction of the patient, or of later complication, without mention of misadventure at the time of the procedure; Z79.52 Long term (current) use of systemic steroids; Z79.899 Other long term (current) drug therapy; Z85.118 Personal history of other malignant neoplasm of bronchus and lung; Z90.2 Acquired absence of lung [part of]
CPT/HCPCS: 88307; 88312; 32505; 36415; 71045; 71046; 80048; 80053; 81003; 82248; 82805; 83036; 83735; 84132; 85025; 85027; 85610; 85730; 86850; 86900; 86901; 86920; 87070; 93005; 94640

== ENCOUNTER → 2025-01-24 14:32 | Outpatient (REF) | payer OTHER, SELFPAY | LOC: RAD 14:32 | PROVIDERS: ATTENDING PHYSICIAN Thoracic Surgery (Cardiothoracic Vascular Surgery); FAMILY PHYSICIAN Family Medicine | DX: R06.02 Shortness of breath (principal) | CPT/HCPCS: 71046 ==

== ENCOUNTER 2025-02-13 09:00 | Outpatient (RCR) | payer OTHER, SELFPAY | END 2025-02-17 13:26 | disposition home or self-care (01) | LOC: PURB 09:00 | PROVIDERS: ATTENDING PHYSICIAN Internal Medicine Critical Care Medicine; FAMILY PHYSICIAN Family Medicine | DX: J44.9 Chronic obstructive pulmonary disease, unspecified (principal); R91.1 Solitary pulmonary nodule; R06.02 Shortness of breath; R94.2 Abnormal results of pulmonary function studies; Z87.01 Personal history of pneumonia (recurrent); C80.1 Malignant (primary) neoplasm, unspecified | CPT/HCPCS: G0237 ==